=== PATIENT | female | born 1945 | race Caucasian/White ===

== ENCOUNTER 2021-12-04 08:00 | Outpatient (REF) | payer MEDICARE, SELFPAY ==
[2021-12-04 08:20] LABS: MANUAL DIFF FLAG NO
[2021-12-04 08:53] LABS: Hematocrit 35.3 % (37.0-47.0); Hemoglobin 11.5 g/dl (12.0-16.0); Imm Gran Pct Auto 0.1 % (0.0-0.4); Mean Corpuscular HGB Conc 32.6 g/dl (31.0-35.0); Mean Corpuscular Hemoglobin 29.9 pg (27.0-33.0); Mean Corpuscular Volume 91.9 fL (80.0-98.0); Mean Platelet Volume 9.2 fL (9.4-12.3); Platelet Count 326 X10*3/uL (160-400); Red Blood Count 3.84 X10*6/uL (4.20-5.50); Red Cell Distribution Width 12.1 % (11.0-16.0); White Blood Count 7.1 X10*3/uL (4.8-10.8)
[2021-12-04 08:54] LABS: Basophils Percent Auto 0.3 % (0-2); Eosinophils Absolute Auto 0.1 X10*3/uL (0.0-0.4); Eosinophils Percent Auto 1.7 % (0-4); Imm Gran Abs Auto 0.01 X10*3/uL (0.00-0.03); Lymphocytes Absolute Auto 1.1 X10*3/uL (1.2-4.9); Lymphocytes Percent Auto 15.4 % (20-40); Monocytes Absolute Auto 0.5 X10*3/uL (0.1-1.2); Monocytes Percent Auto 7.5 % (2-11); Neutrophils Absolute Auto 5.3 x10*3/uL (2.0-8.3)
[2021-12-04 08:55] LABS: Appearance Urine HAZY; Color Urine YELLOW; Glucose Urine UA NEG (NEG); Leukocyte Esterase Urine 3+ (NEG); Nitrite Urine POS (NEG); Urine Blood NEG (NEG); Urine Ketones NEG (NEG); Urine Protein NEG (NEG-TRACE)
[2021-12-04 09:07] LABS: Bacteria Urine 4+ /LPF; Squamous Epithelial Cell Urine 3+ /LPF
[2021-12-04 09:07] LABS: Estimated Average Glucose 126 mg/dL
[2021-12-04 09:08] LABS: RBC Urine 0 /HPF (0)
[2021-12-04 09:24] LABS: Alanine Aminotransferase 10 U/L (0-31); Albumin Level 3.8 g/dL (3.5-5.0); Alkaline Phosphatase 72 U/L (39-117); Anion Gap 11 (12-20); Aspartate Amino Transferase 15 U/L (5-31); Bilirubin Total 0.9 mg/dL (0.0-1.0); Blood Urea Nitrogen 21 mg/dL (9-16); Calcium 9.3 mg/dL (8.4-10.2); Carbon Dioxide 27 mmol/L (22-29); Chloride 108 mmol/L (96-108); Cholesterol 180 mg/dL; Estimated Glomerular Filt Rate > 60; Glucose Random 93 mg/dL (60-115); HDL Cholesterol 70 mg/dL; LDL Cholesterol Calculated 102 mg/dl; Potassium 4.3 mmol/L (3.3-5.1); Sodium 142 mmol/L (135-145); Total Protein 6.2 g/dL (6.5-8.0); Triglycerides 44 mg/dL
[2021-12-04 09:59] LABS: Free T4 (Free Thyroxine) 0.99 ng/dL (0.71-1.85); Thyroid Stimulating Hormone 1.17 uIU/mL (0.32-4.0); Vitamin D 25-OH Total 55.2 ng/mL (>30)
[2021-12-04 10:57] LABS: Folate 8.8 ng/mL (> or = 4.0); Vitamin B12 331 pg/mL (200-900)
== END 2021-12-04 08:01 | disposition home or self-care (01) ==
LOC: HO.LAB 08:00
PROVIDERS: PCP Internal Medicine; Visit Provider Internal Medicine
DX: K21.9 Gastro-esophageal reflux disease without esophagitis (principal); E78.00 Pure hypercholesterolemia, unspecified
CPT/HCPCS: 36415; 80053; 80061; 81001; 82306; 82607; 82746; 83036; 84439; 84443; 85025

== ENCOUNTER 2022-02-05 13:20 | Outpatient (REF) | payer MEDICARE, SELFPAY ==
--- NOTE | ~2022-02-05 | MM_ITS ---
EXAMINATION: BONE DENSITOMETRY CLINICAL INDICATION: Osteoporosis. COMPARISON: Baseline BD dated 02/02/2020. TECHNIQUE: Using a [employer] DXA System (software version: 13.1) manufactured by [email or web address], dual-energy x-ray absorptiometry was performed of the lumbar spine and left hip. The images are of good technical quality. Summary results are attached. FINDINGS: AP SPINE L1-L4: Current: BMD 0.994 g/cm2, Z-score 0.5, T-score -1.6, osteopenia, 2.8% increase from baseline (<5% change is not significant). Baseline: BMD 0.967 g/cm2. LEFT FEMUR, NECK: Current: BMD 0.729 g/cm2, Z-score -0.1, T-score -2.2, osteopenia. Baseline: BMD 0.752 g/cm2. LEFT FEMUR, TOTAL: Current: BMD 0.750 g/cm2, Z-score -0.1, T-score -2.0, osteopenia, 1.3% decrease from baseline (<5% change is not significant). Baseline: BMD 0.760 g/cm2. IDENTIFIED RISK FACTORS: Menopause. HISTORY OF FRACTURE: Childhood fracture, wrist. MEDICATIONS: Vitamin D. MM/XR DEXA axial skeleton IMPRESSION: 1. DIAGNOSIS: Osteopenia based on the lowest T-score value of -2.2 in the femoral neck applying World Health Organization criteria. 2. 10-YEAR FRACTURE RISK PREDICTION, FRAX: Major osteoporotic fracture (clinical spine, forearm, hip or shoulder) 13.4%. Hip fracture 3.8%. 3. Treatment Recommendations: NOF guidelines recommend consideration for treatment in postmenopausal women and men age 50 and older presenting with the following: -A hip or vertebral (clinical or morphometric) fracture. -T-score less than or equal to -2.5 at the femoral neck or spine after appropriate evaluation to exclude secondary causes. -Low bone mass at the hip or spine and a 10-year fracture probability by FRAX of greater than or equal to 3% for hip fracture or greater than or equal to 20% for major osteoporotic fracture based on the [place] adapted WHO algorithm. 4. Other Recommendations: All treatment decisions require clinical judgment and consideration of individual patient factors, including patient preferences, comorbidities, previous drug use, risk factors not captured in the FRAX model (e.g. frailty, falls, vitamin D deficiency, increased bone turnover, interval significant decline in bone density) and possible under or overestimation of fracture risk by FRAX. Additional medical evaluation for secondary cause of low bone mineral density may be appropriate. FUTURE SCAN RECOMMENDATION: People with diagnosed cases of osteoporosis or at high risk for fracture should have regular bone mineral density tests. For patients eligible for Medicare, routine testing is allowed once every 2 years. The testing frequency can be increased to one year for patients who have rapidly progressing disease, those who are receiving or discontinuing medical therapy to restore bone mass, or have additional risk factors.
--- NOTE | ~2022-02-05 | MM_ITS ---
EXAMINATION: MM SCREENING DIGITAL BREAST TOMOSYNTHESIS, BILATERAL CLINICAL INFORMATION: Screening. Asymptomatic. The lifetime risk of breast cancer based on the Tyrer-Cuzick Model is 3%. COMPARISON: Mammography: 02/02/2020, 01/28/2017, 10/21/2012 TECHNIQUE: Digital breast tomosynthesis is performed in both the craniocaudal and mediolateral oblique views along with computer-aided detection (CAD). Synthesized 2D images are generated from the tomosynthesis. FINDINGS: The breasts are heterogeneously dense, which may obscure small masses (ACR BI-RADS breast composition Category c). There is fine fibronodular parenchymal pattern. Left breast shows no interval mass or architectural abnormality. Neither breast shows abnormal calcifications. The skin contours are smooth. Right MLO synthesized view has asymmetric density upper breast 7 cm from nipple, likely summation artifact. MM/MM tomosynthesis screening BI IMPRESSION: Right: -Asymmetric density upper breast 7 cm from nipple, likely summation artifact. Left: -No mammographic evidence of malignancy. ASSESSMENT: BI-RADS 0: Incomplete - Need Additional Imaging Evaluation RECOMMENDATION: 1. Additional views of the right breast (spot MLO, changed angle MLO). 2. Targeted ultrasound if warranted after review of the additional views. 3. Radiology department staff will contact the patient for additional imaging. This patient's information was entered into a reminder system with a target due date for their next mammogram.
== END 2022-02-05 13:21 | disposition home or self-care (01) ==
LOC: HO.MAMMO 13:20
PROVIDERS: PCP Internal Medicine; Visit Provider Internal Medicine
DX: Z12.31 Encounter for screening mammogram for malignant neoplasm of breast (principal); Z13.820 Encounter for screening for osteoporosis; M81.0 Age-related osteoporosis without current pathological fracture; Z78.0 Asymptomatic menopausal state
CPT/HCPCS: 77063; 77067; 77080

== ENCOUNTER 2022-02-26 12:55 | Outpatient (REF) | payer MEDICARE, SELFPAY ==
--- NOTE | ~2022-02-26 | MM_ITS ---
EXAMINATION: MM DIAGNOSTIC DIGITAL BREAST TOMOSYNTHESIS, RIGHT CLINICAL INFORMATION: Recall from screening for asymmetric density upper breast on MLO view, suspect summation artifact. COMPARISON: Mammography: 02/05/2022, 02/02/2020, 01/28/2017 TECHNIQUE: Digital breast tomosynthesis is performed. 2D images are generated from the tomosynthesis. The following views are obtained: MLO with mole marker, spot MLO with mole marker. FINDINGS: The breasts are heterogeneously dense, which may obscure small masses (ACR BI-RADS breast composition Category c). There is a dermal lesion overlying the area for recall. The underlying breast fibroglandular tissue shows no mass or architectural abnormality or developing density from prior studies. No significant changes from prior exams. Results are discussed with the patient at time of visit. MM/MM tomosynthesis added views R IMPRESSION: -Dermal lesion overlying the area for recall. -Additional views show no significant changes in the targeted area from prior studies. ASSESSMENT: BI-RADS 2: Benign RECOMMENDATION: Routine annual mammography screening. This patient's information was entered into a reminder system with a target due date for their next mammogram.
== END 2022-02-26 12:56 | disposition home or self-care (01) ==
LOC: HO.MAMMO 12:55
PROVIDERS: PCP Internal Medicine; Visit Provider Internal Medicine
DX: R92.2 Inconclusive mammogram (principal)
CPT/HCPCS: 77061; 77065

== ENCOUNTER 2022-12-27 06:32 | Outpatient (REF) | payer MEDICARE, SELFPAY ==
[2022-12-27 06:42] LABS: MANUAL DIFF FLAG NO
[2022-12-27 07:28] LABS: Basophils Absolute Auto 0.1 X10*3/uL (0.0-0.2); Basophils Percent Auto 1.4 % (0-2); Eosinophils Absolute Auto 0.2 X10*3/uL (0.0-0.4); Hematocrit 36.1 % (37.0-47.0); Hemoglobin 11.8 g/dl (12.0-16.0); Imm Gran Abs Auto 0.01 X10*3/uL (0.00-0.03); Imm Gran Pct Auto 0.3 % (0.0-0.4); Immature Retic Fraction 8.8 % (3.0-15.9); Lymphocytes Absolute Auto 1.1 X10*3/uL (1.2-4.9); Lymphocytes Percent Auto 29.8 % (20-40); Mean Corpuscular HGB Conc 32.7 g/dl (31.0-35.0); Mean Corpuscular Hemoglobin 30.1 pg (27.0-33.0); Mean Corpuscular Volume 92.1 fL (80.0-98.0); Monocytes Absolute Auto 0.4 X10*3/uL (0.1-1.2); Monocytes Percent Auto 10.4 % (2-11); Neutrophils Absolute Auto 1.9 x10*3/uL (2.0-8.3); Neutrophils Percent Auto 52.1 % (45-73); Platelet Count 320 X10*3/uL (160-400); Red Blood Count 3.92 X10*6/uL (4.20-5.50); Red Cell Distribution Width 11.9 % (11.0-16.0); Retic HGB Equivalent 31.9 pg (30.0-35.0); Reticulocyte Percent 0.9 % (0.5-1.8); Reticulocytes Absolute 0.035 X10*6/uL (0.026-0.095); White Blood Count 3.7 X10*3/uL (4.8-10.8)
[2022-12-27 07:34] LABS: Estimated Average Glucose 117 mg/dL; Hemoglobin A1c % 5.7 %
[2022-12-27 08:15] LABS: Alanine Aminotransferase 28 U/L (0-31); Albumin Level 3.8 g/dL (3.5-5.0); Alkaline Phosphatase 76 U/L (39-117); Anion Gap 13 (12-20); Aspartate Amino Transferase 22 U/L (5-31); Bilirubin Total 0.6 mg/dL (0.0-1.0); Blood Urea Nitrogen 17 mg/dL (9-16); Calcium 8.9 mg/dL (8.4-10.2); Carbon Dioxide 29 mmol/L (22-29); Chloride 106 mmol/L (96-108); Cholesterol 185 mg/dL; Estimated Glomerular Filt Rate > 60; Glucose Random 100 mg/dL (60-115); HDL Cholesterol 70 mg/dL; Iron 106 mcg/dL (30-160); LDL Cholesterol Calculated 107 mg/dl; Percent Iron Saturation 45 % (15-50); Potassium 4.6 mmol/L (3.3-5.1); Sodium 143 mmol/L (135-145); Total Iron Binding Capacity 238 mcg/dL (228-428); Total Protein 6.3 g/dL (6.5-8.0); Triglycerides 43 mg/dL; Unsaturated Iron Binding 132 ug/dL
[2022-12-27 08:27] LABS: Ferritin 215 ng/mL (10-250); Folate 15.6 ng/mL (> or = 4.0); Free T4 (Free Thyroxine) 1.05 ng/dL (0.71-1.85); Thyroid Stimulating Hormone 0.94 uIU/mL (0.32-4.0); Vitamin B12 567 pg/mL (200-900); Vitamin D 25-OH Total 66.3 ng/mL (>30)
== END 2022-12-27 06:33 | disposition home or self-care (01) ==
LOC: HO.LAB 06:32
PROVIDERS: PCP Internal Medicine; Visit Provider Internal Medicine
DX: D64.9 Anemia, unspecified (principal); R73.02 Impaired glucose tolerance (oral); E78.00 Pure hypercholesterolemia, unspecified; M85.80 Other specified disorders of bone density and structure, unspecified site; E55.9 Vitamin D deficiency, unspecified
CPT/HCPCS: 36415; 80053; 80061; 82306; 82607; 82728; 82746; 83036; 83540; 84439; 84443; 85025; 85045

== ENCOUNTER 2023-02-10 16:49 | Outpatient (AMB) | payer MEDICARE, SELFPAY ==
--- NOTE | 2023-02-10 16:54 | MHC.PC.OV ---
Vital Signs 02/10/23 16:55 Height 5 ft 1.5 in Weight 116 lb BMI 21.6 BP 134/70 Blood Pressure Location Lt brachial Position Sitting Pulse 64 Pulse Source Pulse Oximeter Pulse Oximetry (%) 98 Oxygen Delivery Method Room Air Intake Visit Reasons: blood pressure, IGT Allergies Sulfa (Sulfonamide Antibiotics) Allergy (Unknown, Verified 02/10/23 16:55) Unknown Medication List - Last Reconciled 02/10/23 by Favian Atkinson MD antiarthritic combination no.2 (glucosamine-chondroitin) mg PO ascorbate calcium (vitamin C) 2.5 grams PO DAILY blood pressure monitor (Blood Pressure Kit) As directed cholecalciferol (vitamin D3) 25 mcg PO DAILY [joycelyn and thyme PO] [tincture of Lions filippo ] valacyclovir 500 mg PO Q12H PRN [vitamin b complex PO] Tobacco use date assessed: 12/26/22 Fall risk assessment: No Falls in past year Last assessed Fall Risk: 02/10/23 Dental Screening Dental Screen Date: 02/10/23 Did you have a dental visit in the last 12 months?: Yes Did you have a dental problem in the last 6 months where you did not have access to dental care?: No Was dental information given to patient?: Patient has dentist HPI blood pressure, IGT HPI Details 77-year-old female with GERD impaired glucose tolerance mild anemia osteopenia coming in for follow-up. Noted to have an elevated blood pressure the last time and is here for follow-up. Bone density is up-to-date colonoscopy is up-to-date. Mammogram is due. Patient was last seen in December 2022. BP at home is all good. complains R LE mild swelling ? twisted decline testing [facility] Medical History (Updated 12/26/22 @ 17:48 by Favian Atkinson MD) Contracture of joint of both hands Genital herpes GERD (gastroesophageal reflux disease) Impaired glucose tolerance Impaired glucose tolerance Leukopenia Osteoarthritis Osteoporosis Vitamin D deficiency Surgical History (Updated 12/26/22 @ 17:29 by Favian Atkinson MD) H/O oral surgery Family History (Updated 12/26/22 @ 16:57 by Rani Biggs CMA) Mother Diabetes Father No problems noted. Brother No problems noted. Sister Diabetes Sister No problems noted. Daughter No problems noted. Son No problems noted. Other Substance use disorder Social History (Updated 12/03/21 @ 12:48 by Favian Atkinson MD) Housing: House Alcohol intake: current Alcohol intake frequency: holidays/special occasions only Patient Tobacco Use Status: Never used Tobacco e-Cigarette/Vaping Use: Never Used Second Hand Smoke Exposure: No Substance Use Type: Marijuana service: No Current occupational status: retired Cognitive needs: No Hearing needs: No Vision needs: Yes Questionnaire PHQ-9 Over the last 2 weeks, how often have you been bothered by any of the following problems? 1. Little interest or pleasure in doing things: not at all 2. Feeling down, depressed, or hopeless: not at all 3. Trouble falling or staying asleep, or sleeping too much: not at all 4. Feeling tired or having little energy: not at all 5. Poor appetite or overeating: not at all 6. Feeling bad about yourself - or that you are a failure or have let yourself or your family down: not at all 7. Trouble concentrating on things, such as reading the newspaper or watching television: not at all 8. Moving or speaking so slowly that other people could have noticed. Or the opposite - being so fidgety or restless that you have been moving around a lot more than usual: not at all 9. Thoughts that you would be better off or of hurting yourself in some way: not at all Total score: 0 Depression Screening Interpretation: Negative Source: Developed by Drs. Aubrey Jaramillo, Tita Hale, Joseluis Nunez and colleagues, with an educational charla from [employer]. Thrive Questionnaire Date Thrive assessed: 12/26/22 AUDIT C Alcohol Use Questionnaire (AUDIT-C) 1. How often do you have a drink containing alcohol?: 2-3 times a week 2. How many drinks containing alcohol do you have on a typical day when you are drinking?: 1 or 2 3. How often do you have six or more drinks on one occasion?: Never Total Score: 3 TORIE-7 AMB Questionnaire TORIE-7 Date TORIE - 7 assessed: 12/26/22 Source: Developed by Drs. Aubrey Jaramillo, Tita Hale, Joseluis Nunez and colleagues, with an educational charla from [employer]. Physical exam (Primary Care) Vital Signs: Last Vital Signs Pulse 64 02/10/23 16:55 BP 134/70 02/10/23 16:55 Pulse Ox 98 02/10/23 16:55 Oxygen Delivery Method Room Air 02/10/23 16:55 BMI result Body Mass Index 21.6 Tobacco/Smoking Status: Tobacco use Status Tobacco use date assessed 12/26/22 02/10/23 17:00 Patient Tobacco Use Status Never used Tobacco 02/10/23 17:00 e-Cigarette/Vaping Use Never Used 02/10/23 17:00 PHQ-9: PHQ-9 Score PHQ-9: Total score 0 02/10/23 17:00 Depression Screening Interpretation: Negative Thrive Assessment: Date of Thrive Assessment Date Thrive assessed 12/26/22 02/10/23 17:00 Const General: alert; No acute distress Eyes Conjunctivae: conjunctivae normal Resp Auscultation: clear to auscultation bilaterally Cardio Rate: regular rate Rhythm: regular rhythm GI Inspection: Yes normal to inspection Extrem General: Yes normal to inspection and No edema Assessment and Plan Assessment & Plan (1) Blood pressure elevated without history of HTN: Code(s): R03.0 - Elevated blood-pressure reading, without diagnosis of hypertension Plan: Blood pressure is better (2) Breast cancer screening by mammogram: Code(s): Z12.31 - Encounter for screening mammogram for malignant neoplasm of breast Plan: Reminded about mammogram (3) Impaired glucose tolerance: Code(s): R73.02 - Impaired glucose tolerance (oral) Plan: Decrease the amount of carbohydrate intake, pasta, bread, rice and potatoes are all sugar and that is aside from all the sweet stuff, remember that fruits are good but they are Sweet also. (4) GERD (gastroesophageal reflux disease): Code(s): K21.9 - Gastro-esophageal reflux disease without esophagitis Plan: Avoid the foods that causes that usually spicy foods, tomato products, juices, coffee, soda and foods that your sensitive to. After eating do not lie down, allow 3-4 hours before in lie down. And keep the head of bed above 30 degrees to avoid the acid from going up. (5) Mild anemia: Code(s): D64.9 - Anemia, unspecified Plan: Continuing to monitor. Stable Coding Level of Care Code Est Pt Level 4 (37626) Diagnoses Blood pressure elevated without history of HTN R03.0 Breast cancer screening by mammogram Z12.31 Impaired glucose tolerance R73.02 GERD (gastroesophageal reflux disease) K21.9 Mild anemia D64.9
[2023-02-10 16:55] VITALS: BP 134/70; PULSE 64; O2SAT 98; BMI 21.6
== END 2023-02-10 18:16 | disposition home or self-care (01) ==
PROVIDERS: PCP Internal Medicine; Visit Provider Internal Medicine
DX: R03.0 Elevated blood-pressure reading, without diagnosis of hypertension (principal); Z12.31 Encounter for screening mammogram for malignant neoplasm of breast; R73.02 Impaired glucose tolerance (oral); K21.9 Gastro-esophageal reflux disease without esophagitis; D64.9 Anemia, unspecified
CPT/HCPCS: 99214

== ENCOUNTER 2023-07-04 14:36 | Outpatient (REF) | payer MEDICARE, SELFPAY ==
[2023-07-04 15:29] LABS: Appearance Urine Cloudy; Color Urine Yellow; Glucose Urine UA Negative (Negative); Leukocyte Esterase Urine Large (3+) (Negative); Nitrite Urine Positive (Negative); PH 7.5 (5.0-9.0); UMIC TRIGGER UA YES; Urine Blood Negative (Negative); Urine Ketones Negative (Negative); Urine Protein Negative (Neg-Trace)
[2023-07-04 15:35] LABS: Bacteria Urine 4+ (None Seen); Hyaline Casts Urine 0-2 /LPF (0-2); RBC Urine 0-2 /HPF (0-2); Squamous Epithelial Cell Urine 0-2 /HPF (0-2)
== END 2023-07-04 14:37 | disposition home or self-care (01) ==
LOC: HO.LAB 14:36
PROVIDERS: PCP Internal Medicine; Visit Provider Internal Medicine
DX: R82.90 Unspecified abnormal findings in urine (principal)
CPT/HCPCS: 81001; 87086; 87088; 87186

== ENCOUNTER 2023-07-23 14:03 | Outpatient (AMB) | payer MEDICARE, SELFPAY ==
[2023-07-23 14:08] VITALS: BP 130/78; PULSE 68; O2SAT 99; BMI 22.3
--- NOTE | 2023-07-23 14:08 | MHC.PC.OV ---
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 Allergies Sulfa (Sulfonamide Antibiotics) Allergy (Unknown, Verified 07/23/23 14:22) Unknown Medication List - Last Reconciled 07/23/23 by Favian Atkinson MD antiarthritic combination no.2 (glucosamine-chondroitin) mg PO ascorbate calcium (vitamin C) 2.5 grams PO DAILY blood pressure monitor (Blood Pressure Kit) As directed cholecalciferol (vitamin D3) 25 mcg PO DAILY [jocyelyn and thyme PO] [tincture of Lions filippo ] valacyclovir 500 mg PO Q12H PRN [vitamin b complex PO] Tobacco use date assessed: 07/23/23 Fall risk assessment: No Falls in past year Last assessed Fall Risk: 07/23/23 Dental Screening Dental Screen Date: 07/23/23 Did you have a dental visit in the last 12 months?: Yes Did you have a dental problem in the last 6 months where you did not have access to dental care?: No Was dental information given to patient?: Patient has dentist HPI Pap Smear HPI Details 77-year-old female with a history of impaired glucose tolerance GERD mild anemia coming in for Pap smear. Last seen in February 2023 bone density is up-to-date colonoscopy up-to-date mammogram due.. patient complains of discharge with odor pungent urinalysis qustion [facility] Medical History (Updated 05/05/23 @ 16:39 by Kristen Birch RN) Impaired glucose tolerance Osteoporosis Impaired glucose tolerance Contracture of joint of both hands Osteoarthritis Genital herpes GERD (gastroesophageal reflux disease) Leukopenia Vitamin D deficiency Surgical History (Updated 12/26/22 @ 17:29 by Favian Atkinson MD) H/O oral surgery Family History (Updated 12/26/22 @ 16:57 by Rani Biggs CMA) Mother Diabetes Father No problems noted. Brother No problems noted. Sister Diabetes Sister No problems noted. Daughter No problems noted. Son No problems noted. Other Substance use disorder Social History (Updated 12/03/21 @ 12:48 by Favian Atkinson MD) Housing: House Alcohol intake: current Alcohol intake frequency: holidays/special occasions only Patient Tobacco Use Status: Never used Tobacco e-Cigarette/Vaping Use: Never Used Second Hand Smoke Exposure: No Substance Use Type: Marijuana service: No Current occupational status: retired Cognitive needs: No Hearing needs: No Vision needs: Yes Questionnaire Thrive Questionnaire Date Thrive assessed: 12/26/22 AUDIT C Alcohol Use Questionnaire (AUDIT-C) 1. How often do you have a drink containing alcohol?: 2-3 times a week 2. How many drinks containing alcohol do you have on a typical day when you are drinking?: 1 or 2 3. How often do you have six or more drinks on one occasion?: Never Total Score: 3 TORIE-7 AMB Questionnaire TORIE-7 Date TORIE - 7 assessed: 12/26/22 Source: Developed by Drs. Aubrey Jaramillo, Tita Hale, Joseluis Nunez and colleagues, with an educational charla from [employer]. Physical exam (Primary Care) Vital Signs: Last Vital Signs Pulse 68 07/23/23 14:08 BP 130/78 07/23/23 14:08 Pulse Ox 99 07/23/23 14:08 Oxygen Delivery Method Room Air 07/23/23 14:08 BMI result Body Mass Index 22.3 Tobacco/Smoking Status: Tobacco use Status Tobacco use date assessed 07/23/23 07/23/23 14:09 Patient Tobacco Use Status Never used Tobacco 07/23/23 14:09 e-Cigarette/Vaping Use Never Used 07/23/23 14:09 Thrive Assessment: Date of Thrive Assessment Date Thrive assessed 12/26/22 07/23/23 14:09 Assessment and Plan Assessment & Plan Orders: Orders Comprehensive Met. Panel 5 Months D64.9 - Anemia, unspecified Lipid Panel 5 Months D64.9 - Anemia, unspecified, E78.00 - Pure hypercholesterolemia, unspecified Vitamin B12 and Folate 5 Months D64.9 - Anemia, unspecified Free T4 (Free Thyroxine) 5 Months D64.9 - Anemia, unspecified Ferritin 5 Months R73.02 - Impaired glucose tolerance (oral) Reticulocyte Count 5 Months R73.02 - Impaired glucose tolerance (oral) Magnesium 5 Months R73.02 - Impaired glucose tolerance (oral) ABO RH Type 5 Months R73.02 - Impaired glucose tolerance (oral) Erythrocyte Sedimentation Rate 5 Months R73.02 - Impaired glucose tolerance (oral) Complete Blood Count Auto Diff 5 Months D64.9 - Anemia, unspecified Thyroid Stimulating Hormone 5 Months D64.9 - Anemia, unspecified Vitamin D 25-OH Total 5 Months D64.9 - Anemia, unspecified Hemoglobin A1c 5 Months R73.02 - Impaired glucose tolerance (oral) IRON PROFILE 5 Months R73.02 - Impaired glucose tolerance (oral) Coding Level of Care Code Est Pt Level 4 (93926)
== END 2023-07-23 15:03 | disposition home or self-care (01) ==
PROVIDERS: PCP Internal Medicine; Visit Provider Internal Medicine
DX: R73.02 Impaired glucose tolerance (oral) (principal); D64.9 Anemia, unspecified
CPT/HCPCS: 99214

== ENCOUNTER 2024-05-03 12:22 | Outpatient (AMB) | payer MEDICARE, SELFPAY ==
--- NOTE | 2024-05-03 12:30 | AM.OFFVISMDC ---
Intake Vital Signs 05/03/24 12:31 Height 5 ft 1.5 in Weight 55.338 kg BMI 22.7 BP 124/70 Blood Pressure Location Lt brachial Position Sitting Pulse 67 Pulse Source Pulse Oximeter Pulse Oximetry (%) 97 Oxygen Delivery Method Room Air Intake Visit Reasons: [facility] Grocery Stocker Required: No Accompanied by: Self / Same As Patient Allergies Sulfa (Sulfonamide Antibiotics) Allergy (Unknown, Verified 05/03/24 12:34) Unknown Medication List - Last Reconciled 05/03/24 by Favian Atkinson MD antiarthritic combination no.2 (glucosamine-chondroitin) mg PO ascorbate calcium (vitamin C) 2.5 grams PO DAILY blood pressure monitor (Blood Pressure Kit) As directed cholecalciferol (vitamin D3) 25 mcg PO DAILY [apoorva tincture ] [joycelyn and thyme PO] [tincture of Lions filippo ] [vitamin b complex PO] HPI SWV HPI Details 78-year-old female with a history of impaired glucose tolerance GERD coming in for annual well visit last seen in 07/23/2023. Patient's bone density was last done in 02/20/2022 colonoscopy last done in 2014 mammogram is due. Dermatology [place] [facility] 07 declines repeat 02/2020 osteoporosis osteopenia February 2022 Colonoscopy May 2015 Mammogram January papsmear CP on lying down Q 6 month. declined mammo and bone density. 2 months R 3rd toe pain, deny trauma but had swelling and pain [facility] Medical History (Updated 05/03/24 @ 12:58 by Favian Atkinson MD) Impaired glucose tolerance Osteoporosis Impaired glucose tolerance Contracture of joint of both hands Osteoarthritis Genital herpes GERD (gastroesophageal reflux disease) Leukopenia Vitamin D deficiency Surgical History H/O oral surgery Family History Mother Diabetes Father No problems noted. Brother No problems noted. Sister Diabetes Sister No problems noted. Daughter No problems noted. Son No problems noted. Other Substance use disorder Social History (Updated 05/03/24 @ 12:47 by Favian Atkinson MD) Housing: House Alcohol intake: current Alcohol intake frequency: holidays/special occasions only Comment: Q night 1 glass Patient Tobacco Use Status: Never used Tobacco Years Smoked: MJ e-Cigarette/Vaping Use: Never Used Second Hand Smoke Exposure: No Substance Use Type: Marijuana service: No Current occupational status: retired Cognitive needs: No Hearing needs: No Vision needs: Yes Questionnaire Medicare Wellness Checkup [age] What gender do you identify with?: female During the past 4 weeks, how much have you been bothered by emotional problems such as feeling anxious, depressed, irritable, sad or downhearted, and blue?: not at all During the past 4 weeks, has your physical & emotional health limited your social activities with family, friends, neighbors, or groups?: not at all During the past 4 weeks, how much bodily pain have you generally had?: very mild pain During the past 4 weeks, was someone available to help you if you needed & wanted help?: yes, as much as I wanted During the past 4 weeks, what was the hardest physical activity you could do for at least 2 minutes?: moderate Can you get to places out of walking distance without help? (For eg., can you travel alone on buses, taxis or drive your car?): Yes Can you go shopping for groceries or clothes without someone's help?: Yes Can you prepare your own meals?: Yes Can you do your housework without help?: Yes Because of any health problems, do you need the help of another person with your personal care needs such as eating, bathing, dressing or getting around the house?: No Can you handle your own money without help?: Yes During the past 4 weeks, how would you rate your health in general?: excellent During the past 4 weeks how have things been going for you?: pretty well Are you having difficulties driving your car?: no Do you always fasten your seat belt when you are in a car?: yes, usually During past 4 weeks, have you been bothered by the following: never: Falling or dizzy when standing up, Sexual problems?, Trouble eating well?, Teeth or denture problems? and Problems using the telephone? and seldom: Tiredness or fatigue? Have you fallen 2 or more times in the past year?: No Are you afraid of falling?: No Are you a smoker?: no During the past 4 weeks, how many drinks of wine, beer, or other alcoholic beverages did you have?: 2-5 drinks per week Do you exercise for about 20 minutes 3 or more times a week?: yes, most of the time Have you been given information to help with the following?: yes: Hazards in your house that might hurt you? and no: Keeping track of your medications? How often do you have trouble taking medicines the way you have been told to take them?: I do not have to take medicine How confident are you that you can control & manage most of your health problems?: very confident What is your race?: White PHQ-9 Over the last 2 weeks, how often have you been bothered by any of the following problems? 1. Little interest or pleasure in doing things: not at all 2. Feeling down, depressed, or hopeless: not at all 3. Trouble falling or staying asleep, or sleeping too much: not at all 4. Feeling tired or having little energy: not at all 5. Poor appetite or overeating: not at all 6. Feeling bad about yourself - or that you are a failure or have let yourself or your family down: not at all 7. Trouble concentrating on things, such as reading the newspaper or watching television: not at all 8. Moving or speaking so slowly that other people could have noticed. Or the opposite - being so fidgety or restless that you have been moving around a lot more than usual: not at all 9. Thoughts that you would be better off or of hurting yourself in some way: not at all Total score: 0 Source: Developed by Drs. Aubrey Jaramillo, Tita Hale, Joseluis Nunez and colleagues, with an educational charla from [employer]. Fall Risk Assessment Fall Risk Assessment Fall risk assessment: No Falls in past year Thrive Questionnaire Date Thrive assessed: 05/03/24 I am a: Patient What is your living situation today?: I have a steady place to live Within the past 12 months, did the food you bought not last and you didn't have the money to get more?: Never true Within the past 12 months, did you worry whether your food would run out before you got money to buy more?: Never true Do you have trouble paying for medicines?: No Do you have trouble getting transportation to medical appointments?: No Do you have trouble paying your heating and electricity bill?: No Do you have trouble taking care of your child, family member or friend?: No Do you have trouble with day-to-day activities such as bathing, preparing meals, shopping, managing finances, etc.?: No Are you currently unemployed and looking for a job?: No Are you interested in more education?: No Please select the resources that you would like help with: None Currently or been in a relationship where the following occur: No concerns reported THRIVE Score: 0 AUDIT C Alcohol Use Questionnaire (AUDIT-C) 1. How often do you have a drink containing alcohol?: 2-3 times a week 2. How many drinks containing alcohol do you have on a typical day when you are drinking?: 1 or 2 3. How often do you have six or more drinks on one occasion?: Never Total Score: 3 TORIE-7 AMB Questionnaire TORIE-7 Date TORIE - 7 assessed: 05/03/24 Feeling nervous, anxious, or on edge: 0 = Not at all Not being able to stop or control worryin = Not at all Worrying too much about different things: 0 = Not at all Trouble relaxin = Not at all Being so restless that it is hard to sit still: 0 = Not at all Becoming easily annoyed or irritable: 0 = Not at all Feeling afraid as if something awful might happen: 0 = Not at all Total TORIE-7 score (0-4 normal; 5-9 mild; 10-14 moderate; 15-21 severe): 0 Source: Developed by Drs. Aubrey Jaramillo, Tita Hale, Joseluis Nunez and colleagues, with an educational charla from [employer]. Review of Systems Const Denies poor appetite and Denies weakness Eyes Denies no additional complaints ENT Reports Normal hearing present, Denies dizziness, Denies nasal congestion, Denies tinnitus and Denies sore throat Card Denies chest pain, Denies syncope, Denies rapid heart rate and Denies dyspnea Resp Denies cough and Denies dyspnea GI Denies change in stool character, Reports constipation, Denies diarrhea, Denies nausea and Denies vomiting Denies urinary frequency, Denies difficulty voiding and Denies dysuria Neuro Reports Normal hearing present, Denies confusion, Denies dizziness, Denies syncope and Denies weakness Psych Denies confusion Physical Exam Vital Signs: Last Vital Signs Pulse 67 05/03/24 12:31 BP 124/70 05/03/24 12:31 Pulse Ox 97 05/03/24 12:31 Oxygen Delivery Method Room Air 05/03/24 12:31 BMI result Body Mass Index 22.7 Const General: alert and awake; No confusion Orientation/consciousness: No confusion HEENT Head: Yes normocephalic Ears: external ears normal and TM's normal bilaterally Face and sinus: Yes normal facial exam Mouth: moist mucous membranes Throat: Yes tonsils normal Eyes Conjunctivae: conjunctivae normal Pupils: Equal, round and reactive pupils present and Pupil accommodation reflex normal Direct Ophthalmoscopy: normal light reflex Neck Neck: No lymphadenopathy Thyroid: Thyroid normal Chest Chest palpation & inspection: normal inspection of the chest Resp Effort & Inspection: normal respiratory effort and no audible wheezes Auscultation: clear to auscultation bilaterally, no crackles, no wheezes and lung sounds not diminished Cardio Rate: regular rate Rhythm: regular rhythm Peripheral pulses: radial pulses present and dorsalis pedis present GI Palpation (GI): no masses Auscultation: normal bowel sounds and normoactive bowel sounds Rectal Exam - Female: deferred Skin General skin exam: no rashes or lesions noted Rashes: no rashes Neuro General: deep tendon reflexes 2+ bilaterally and No confusion Cranial nerves: Yes Equal, round and reactive pupils present, Yes Midline tongue present, Yes Normal hearing present and Yes Ability to bilaterally elevate shoulders present Cognition (Neuro): normal cognition Gait exam (Neuro): Normal gait present Motor exam (neuro): 5/5 motor strength present throughout Deep tendon reflexes (DTR's): Right brachioradialis reflex intensity grade: 2+, Left brachioradialis reflex intensity grade: 2+, Right patellar reflex intensity grade: 2+ and Left patellar reflex intensity grade: 2+ Extrem Other: R thrid toe dip swelling General: No edema Assessment & Plan Assessment & Plan (1) Medicare annual wellness visit, subsequent: Code(s): Z00.00 - Encounter for general adult medical examination without abnormal findings Plan: Patient is advised to eat healthy, keep well hydrated, keep active and have adequate sleep. (2) GERD (gastroesophageal reflux disease): Code(s): K21.9 - Gastro-esophageal reflux disease without esophagitis Qualifiers: Esophagitis presence: without esophagitis Qualified Code(s): K21.9 - Gastro-esophageal reflux disease without esophagitis Plan: Avoid the foods that causes that usually spicy foods, tomato products, juices, coffee, soda and foods that your sensitive to. After eating do not lie down, allow 3-4 hours before in lie down. And keep the head of bed above 30 degrees to avoid the acid from going up. (3) Osteopenia: Comment: February 2022 Code(s): M85.80 - Other specified disorders of bone density and structure, unspecified site Plan: Discussed about repeat bone density (4) Breast cancer screening by mammogram: Code(s): Z12.31 - Encounter for screening mammogram for malignant neoplasm of breast Plan: Discussion about mammogram (5) Toe pain, right: Comment: R third toe dip pain 04/2024 Code(s): M79.674 - Pain in right toe(s) Plan: xr requested Orders: Orders XR foot RT 2V Today M79.674 - Pain in right toe(s) Quality Reporting (2019) Fall Risk Screening ([facility] 139) Fall risk assessment: No Falls in past year Depression/Bipolar (159/160/161/177) PHQ-9: Total score: 0 Coding Level of Care Code Medicare Subsequent (G0439) Diagnoses Medicare annual wellness visit, subsequent Z00.00 Gastroesophageal reflux disease without esophagitis K21.9 Esophagitis presence: without esophagitis Osteopenia M85.80 Breast cancer screening by mammogram Z12.31 Toe pain, right M79.674
[2024-05-03 12:31] VITALS: BP 124/70; PULSE 67; O2SAT 97; BMI 22.7
== END 2024-05-03 14:48 | disposition home or self-care (01) ==
PROVIDERS: PCP Internal Medicine; Visit Provider Internal Medicine
DX: Z00.00 Encounter for general adult medical examination without abnormal findings (principal); K21.9 Gastro-esophageal reflux disease without esophagitis; M85.80 Other specified disorders of bone density and structure, unspecified site; Z12.31 Encounter for screening mammogram for malignant neoplasm of breast; M79.674 Pain in right toe(s)

== ENCOUNTER → 2024-05-03 12:22 | Outpatient (BNVA) | payer MEDICARE, SELFPAY | PROVIDERS: PCP Internal Medicine; Visit Provider Internal Medicine ==

== ENCOUNTER 2024-05-06 07:09 | Outpatient (REF) | payer MEDICARE, SELFPAY ==
[2024-05-06 07:33] LABS: MANUAL DIFF FLAG NO
[2024-05-06 08:53] LABS: Basophils Percent Auto 0.7 % (0-2); Eosinophils Absolute Auto 0.1 X10*3/uL (0.0-0.4); Estimated Average Glucose 120 mg/dL; Hematocrit 38.8 % (37.0-47.0); Hemoglobin 12.9 g/dl (12.0-16.0); Hemoglobin A1C 129.1144 umol/L; Hemoglobin A1c % 5.8 % (<6.0); Imm Gran Abs Auto 0.01 X10*3/uL (0.00-0.03); Imm Gran Pct Auto 0.2 % (0.0-0.4); Immature Retic Fraction 8.2 % (3.0-15.9); Lymphocytes Absolute Auto 1.1 X10*3/uL (1.2-4.9); Lymphocytes Percent Auto 25.6 % (20-40); Mean Corpuscular HGB Conc 33.2 g/dl (31.0-35.0); Mean Corpuscular Hemoglobin 30.5 pg (27.0-33.0); Mean Corpuscular Volume 91.7 fL (80.0-98.0); Mean Platelet Volume 9.2 fL (9.4-12.3); Monocytes Absolute Auto 0.4 X10*3/uL (0.1-1.2); Monocytes Percent Auto 8.2 % (2-11); Neutrophils Absolute Auto 2.7 x10*3/uL (2.0-8.3); Neutrophils Percent Auto 62.3 % (45-73); Platelet Count 274 X10*3/uL (160-400); Red Blood Count 4.23 X10*6/uL (4.20-5.50); Red Cell Distribution Width 12.1 % (11.0-16.0); Retic HGB Equivalent 34.2 pg (30.0-35.0); Reticulocyte Percent 1.1 % (0.5-1.8); Reticulocytes Absolute 0.048 X10*6/uL (0.026-0.095); Total Hemoglobin (HGBA1C) 3277.2969 umol/L; White Blood Count 4.4 X10*3/uL (4.8-10.8)
[2024-05-06 09:42] LABS: Alanine Aminotransferase 20 U/L (0-31); Albumin Level 4.1 g/dL (3.5-5.0); Alkaline Phosphatase 70 U/L (39-117); Anion Gap 11 (12-20); Aspartate Amino Transferase 29 U/L (5-31); Bilirubin Total 0.5 mg/dL (0.0-1.0); Blood Urea Nitrogen 12 mg/dL (9-16); Calcium 9.6 mg/dL (8.4-10.2); Carbon Dioxide 29 mmol/L (22-29); Chloride 107 mmol/L (96-108); Cholesterol 185 mg/dL (<200); Estimated Glomerular Filt Rate > 60; Glucose Random 109 mg/dL (60-115); HDL Cholesterol 81 mg/dL (>40); Iron 79 mcg/dL (30-160); LDL Cholesterol Calculated 96 mg/dL (<100); Percent Iron Saturation 32 % (15-50); Potassium 4.3 mmol/L (3.3-5.1); Sodium 143 mmol/L (135-145); Total Iron Binding Capacity 247 mcg/dL (228-428); Total Protein 7.1 g/dL (6.5-8.0); Triglycerides 43 mg/dL (<150); Unsaturated Iron Binding 168 ug/dL
[2024-05-06 09:46] LABS: Erythrocyte Sedimentation Rate 13 MM/HR (0-20)
[2024-05-06 10:00] LABS: Ferritin 145 ng/mL (10-250); Free T4 (Free Thyroxine) 0.96 ng/dL (0.71-1.85); Thyroid Stimulating Hormone 1.45 uIU/mL (0.32-4.0); Vitamin D 25-OH Total 72.9 ng/mL (>30)
[2024-05-06 10:26] LABS: Folate 15.8 ng/mL (> or = 4.0); Vitamin B12 550 pg/mL (200-900)
== END 2024-05-06 07:10 | disposition home or self-care (01) ==
LOC: HO.LAB 07:09
PROVIDERS: PCP Internal Medicine; Visit Provider Internal Medicine
DX: D64.9 Anemia, unspecified (principal); E78.00 Pure hypercholesterolemia, unspecified; R73.02 Impaired glucose tolerance (oral)
CPT/HCPCS: 36415; 80053; 80061; 82306; 82607; 82728; 82746; 83036; 83540; 83735; 84439; 84443; 85025; 85045; 85652; 86900; 86901

== ENCOUNTER 2024-06-25 07:53 | Outpatient (REF) | payer MEDICARE, SELFPAY ==
--- NOTE | ~2024-06-25 | XR_ITS ---
EXAMINATION: XR FOOT, RIGHT CLINICAL INFORMATION: Right toe pain. COMPARISON: Fall one week ago. TECHNIQUE: AP, lateral, and oblique views of the right foot. FINDINGS: Prominent distal third toe soft tissue swelling. Cortical irregularity through the middle phalangeal head which could be degenerative or represent a nondisplaced fracture. No discrete fracture line. No dislocation. Joint space narrowing with marginal osteophytes throughout the interphalangeal joints as well as at the 1st metatarsophalangeal joint and hallux sesamoids. No osseous erosion. Plantar calcaneal spur. XR/XR foot RT 2V IMPRESSION: 1. Prominent distal third toe soft tissue swelling. Cortical irregularity through the middle phalangeal head which could be degenerative or represent a nondisplaced fracture. No discrete fracture line. 2. Degenerative arthritis throughout the interphalangeal joints as well as at the 1st metatarsophalangeal joint and hallux sesamoids. 3. Plantar calcaneal spur. Electronically signed by: Marvin Cotter MD 06/25/2024 12:11 PM [facility]
--- NOTE | ~2024-06-25 | XR_ITS ---
EXAMINATION: XR HAND, RIGHT CLINICAL INFORMATION: Right hand pain. COMPARISON: None available. TECHNIQUE: PA, lateral, and oblique views of the right hand. FINDINGS: Probable minimally displaced, oblique fracture through the base of the 5th metacarpal with cortical step-off measuring up to 0.2 cm radially. Correlate for focal tenderness. No definite extension to the articular surface. No additional fracture. No dislocation. Severe joint space narrowing with bony remodeling and marginal osteophytes at the 1st carpometacarpal joint. More mild joint space narrowing with tiny marginal osteophytes scattered throughout the metacarpophalangeal and interphalangeal joints. No osseous erosion. No abnormal soft tissue calcification. XR/XR hand RT 2V IMPRESSION: 1. Probable minimally displaced, oblique fracture through the base of the 5th metacarpal. Correlate for focal tenderness. 2. Severe degenerative arthritis at the 1st carpometacarpal joint. More mild degenerative arthritis scattered throughout the metacarpophalangeal and interphalangeal joints. Electronically signed by: Marvin Cotter MD 06/25/2024 12:03 PM [facility]
== END 2024-06-25 07:54 | disposition home or self-care (01) ==
LOC: HO.XRAY 07:53
PROVIDERS: PCP Internal Medicine; Visit Provider Internal Medicine
DX: M79.674 Pain in right toe(s) (principal); M79.641 Pain in right hand
CPT/HCPCS: 73120; 73620

== ENCOUNTER 2024-08-23 09:19 | Outpatient (AMB) | payer MEDICARE, SELFPAY ==
[2024-08-23 09:23] VITALS: BP 120/60; PULSE 76; TEMP 36.4; O2SAT 99; BMI 21.5
--- NOTE | 2024-08-23 09:23 | MHC.PC.OV ---
Vital Signs 08/23/24 09:23 Height 5 ft 1.5 in Weight 115 lb 8 oz BMI 21.5 BP 120/60 Blood Pressure Location Lt brachial Position Sitting Pulse 76 Pulse Source Pulse Oximeter Temp 97.5 F Temp Source Temporal Artery Scan Pulse Oximetry (%) 99 Oxygen Delivery Method Room Air Intake Visit Reasons: BP Dynamics Ax Developer Required: No Accompanied by: Self / Same As Patient Allergies Sulfa (Sulfonamide Antibiotics) Allergy (Unknown, Verified 08/23/24 09:31) Unknown Medication List - Last Reconciled 08/23/24 by KUSUM Blankenship antiarthritic combination no.2 (glucosamine-chondroitin) mg PO ascorbate calcium (vitamin C) 2.5 grams PO DAILY blood pressure monitor (Blood Pressure Kit) As directed cholecalciferol (vitamin D3) 25 mcg PO DAILY [apoorva tincture ] [joycelyn and thyme PO] [tincture of Lions filippo ] [vitamin b complex PO] Tobacco use date assessed: 08/23/24 Fall risk assessment: 1 Fall in past year Last assessed Fall Risk: 08/23/24 Dental Screening Dental Screen Date: 08/23/24 Did you have a dental visit in the last 12 months?: Yes Did you have a dental problem in the last 6 months where you did not have access to dental care?: No Was dental information given to patient?: Patient has dentist HPI BP HPI Details Patient is a 78-year-old female with significant past medical history of osteopenia, mild anemia, GERD Patient is a patient of Dr. Atkinson, she was last seen on 05/03/2024 annual visit The patient is presenting today due to concerns for elevated blood pressure The patient reports she has been going through a separation with her recently and this has caused her a lot of stress. She reported that she took her blood pressure due to concerns because high blood pressure runs in her family. Reports her readings were in the 180s/60s. She reports that she has been meditating, taking walks and she is scheduled to see a therapist. Overall she is feeling much better, she denies chest, denies shortness of breath, denies heart palpitation and headaches. The patient has a history of GERD but denies heartburn denies any change in her stool habits or stomach pain. Patient blood pressure today in office is 120/60. The patient was informed that this was most likely due to her stress and was encouraged that she is taking all the right steps to decrease her stress. The patient reports that in the past she has had chest pains and heart palpitation but it does not happen often. She reports that the last time this happened was in April, and it lasted about 10-15 minutes. Reports that this is a sharp pain that usually takes her breath away. She denies radiation of the pain, nausea or vomiting, diaphoresis her feeling faint. She reports that her chest pain usually happens at night or in the morning before she gets up. She reports that this does not happen often, maybe 3-4 times in couple of years. She is not sure if this correlates with stressful situations. She endorse ups and downs in her life and has gone through a lot of changes so it could have been but she is not sure. --we will do a baseline EKG today. Patient is encouraged to contact the office if she start having these symptoms again. [facility] Medical History (Updated 08/23/24 @ 10:45 by KUSUM Blankenship) Impaired glucose tolerance Osteoporosis Impaired glucose tolerance Contracture of joint of both hands Osteoarthritis Genital herpes GERD (gastroesophageal reflux disease) Leukopenia Vitamin D deficiency Surgical History H/O oral surgery Family History Mother Diabetes Father No problems noted. Brother No problems noted. Sister Diabetes Sister No problems noted. Daughter No problems noted. Son No problems noted. Other Substance use disorder Social History Housing: House Alcohol intake: current Alcohol intake frequency: holidays/special occasions only Comment: Q night 1 glass Patient Tobacco Use Status: Never used Tobacco Years Smoked: MJ e-Cigarette/Vaping Use: Never Used Second Hand Smoke Exposure: No Substance Use Type: Marijuana service: No Current occupational status: retired Cognitive needs: No Hearing needs: No Vision needs: Yes Questionnaire PHQ-9 Over the last 2 weeks, how often have you been bothered by any of the following problems? 1. Little interest or pleasure in doing things: not at all 2. Feeling down, depressed, or hopeless: not at all 3. Trouble falling or staying asleep, or sleeping too much: not at all 4. Feeling tired or having little energy: not at all 5. Poor appetite or overeating: not at all 6. Feeling bad about yourself - or that you are a failure or have let yourself or your family down: not at all 7. Trouble concentrating on things, such as reading the newspaper or watching television: not at all 8. Moving or speaking so slowly that other people could have noticed. Or the opposite - being so fidgety or restless that you have been moving around a lot more than usual: not at all 9. Thoughts that you would be better off or of hurting yourself in some way: not at all Total score: 0 Depression Screening Interpretation: Negative Depression Screening Done: Yes 30440 - PHQ-9 Billing: Yes Source: Developed by Drs. Aubrey Jaramillo, Tita Hale, Joseluis Nunez and colleagues, with an educational charla from [employer]. Thrive Questionnaire Date Thrive assessed: 08/23/24 I am a: Patient What is your living situation today?: I have a steady place to live Within the past 12 months, did the food you bought not last and you didn't have the money to get more?: Never true Within the past 12 months, did you worry whether your food would run out before you got money to buy more?: Never true Do you have trouble paying for medicines?: No Do you have trouble getting transportation to medical appointments?: No Do you have trouble paying your heating and electricity bill?: No Do you have trouble taking care of your child, family member or friend?: No Do you have trouble with day-to-day activities such as bathing, preparing meals, shopping, managing finances, etc.?: No Are you currently unemployed and looking for a job?: No Are you interested in more education?: No Please select the resources that you would like help with: None Currently or been in a relationship where the following occur: No concerns reported THRIVE Score: 0 AUDIT C Alcohol Use Questionnaire (AUDIT-C) 1. How often do you have a drink containing alcohol?: 2-3 times a week 2. How many drinks containing alcohol do you have on a typical day when you are drinking?: 1 or 2 3. How often do you have six or more drinks on one occasion?: Never Total Score: 3 Score Reviewed/Action Taken: Yes TORIE-7 AMB Questionnaire TORIE-7 Date TORIE - 7 assessed: 08/23/24 Feeling nervous, anxious, or on edge: 0 = Not at all Not being able to stop or control worryin = Not at all Worrying too much about different things: 0 = Not at all Trouble relaxin = Not at all Being so restless that it is hard to sit still: 0 = Not at all Becoming easily annoyed or irritable: 0 = Not at all Feeling afraid as if something awful might happen: 0 = Not at all Total TORIE-7 score (0-4 normal; 5-9 mild; 10-14 moderate; 15-21 severe): 0 Source: Developed by Drs. Aubrey Jaramillo, Tita Hale, Joseluis Nunez and colleagues, with an educational charla from [employer]. TORIE-7 Assessment Billing TORIE-7 Assessment Tool: TORIE-7 Assessment 72196 Review of Systems Const Details: Denies chills, Denies fatigue, Denies fever(s), Denies headache(s) and Denies weakness HEENT Denies change in vision, Denies dizziness, Denies headache(s), Denies hearing loss, Denies nasal congestion, Denies sinus pain, Denies sinus pressure and Denies sore throat Card Denies chest pain, Denies lightheadedness, Denies dyspnea and Denies other (palpitations) Resp Denies cough, Denies dyspnea and Denies wheezing GI Denies abdominal pain, Denies melena, Denies hematochezia, Denies change in bowel habits, Denies dyspepsia and Denies nausea Denies hematuria and Denies dysuria Musc Denies abnormal gait, Denies myalgias, Denies arthralgias, Denies numbness and Denies tingling Skin/Breast Denies rash, Denies unusual bruising and Denies wounds Neuro Denies abnormal gait, Denies dizziness, Denies headache(s), Denies memory loss, Denies numbness, Denies Sensory deficit (Neuro), Denies tingling and Denies weakness Psych Denies anxiety, Denies depression and Denies memory loss Endo Denies cold intolerance, Denies fatigue, Denies heat intolerance, Denies polydipsia and Denies polyuria Cliff/Lymph Denies easy bleeding and Denies easy bruising Aller/Immun Denies wheezing Physical exam (Primary Care) Vital Signs: Last Vital Signs Temp 97.5 F 08/23/24 09:23 Pulse 76 08/23/24 09:23 BP 120/60 08/23/24 09:23 Pulse Ox 99 08/23/24 09:23 Oxygen Delivery Method Room Air 08/23/24 09:23 BMI result Body Mass Index 21.5 Tobacco/Smoking Status: Tobacco use Status Tobacco use date assessed 08/23/24 08/23/24 09:29 Patient Tobacco Use Status Never used Tobacco 08/23/24 09:29 e-Cigarette/Vaping Use Never Used 08/23/24 09:29 PHQ-9: PHQ-9 Score PHQ-9: Total score 0 08/23/24 10:03 Depression Screening Interpretation: Negative Thrive Assessment: Date of Thrive Assessment Date Thrive assessed 08/23/24 08/23/24 09:29 Currently or been in a relationship where the following occur: No concerns reported Const Other: General: no acute distress, well developed, alert and awake Nutritional Appearance: well nourished Orientation/consciousness: patient oriented x3 HENMT Head: Yes normocephalic and Yes atraumatic Eyes Pupils: Equal, round and reactive pupils present and Pupil accommodation reflex normal EOM: EOMs intact bilaterally Neck Neck: Yes normal visual inspection, Yes no lymphadenopathy Thyroid: Thyroid normal Chest Chest palpation & inspection: normal inspection of the chest Resp Effort & Inspection: normal respiratory effort Auscultation: clear to auscultation bilaterally Cardio Rate: regular rate Rhythm: regular rhythm Heart sounds: S1 normal heart sound present, S2 normal heart sound present, no gallops, no murmurs and no rubs Bruits: no abdominal aortic bruits and no carotid bruits GI Palpation (GI): Her abdomen is soft and nontender to palpation Auscultation: normal bowel sounds General: Yes no CVA tenderness Back/Spine/Pelvis Back: no CVA tenderness Skin General: warm and dry. Normal skin color. Normal skin turgor Lesions: no lesions Nails: normal Neuro General: patient oriented x3, gait normal Cranial nerves: Yes Equal, round and reactive pupils present Cognition (Neuro): normal cognition Gait exam (Neuro): Normal gait present Extrem General: Yes normal to inspection, No edema and No calf tenderness Psych Appearance: grossly normal Affect: normal affect Attitude: cooperative Thought process: Normal thought process present Office Procedures EKG [id number], Complete Coding Level of Care Code Est Pt Level 3 (73734) Diagnoses Chest pain, unspecified type R07.9 Chest pain type: unspecified Blood pressure elevated without history of HTN R03.0 Mild anemia D64.9 Gastroesophageal reflux disease without esophagitis K21.9 Esophagitis presence: without esophagitis Impaired glucose tolerance R73.02 Situational stress F43.9 CPT Codes EKG - CPT: 26750-[id number], Complete ([id number]) Additional Codes TORIE-7 Assessment Billing - TORIE-7 Assessment Tool: TORIE-7 Assessment 27822 ([id number]) PHQ-9 - 51917 - PHQ-9 Billing: Yes ([id number]) Time Spent (min) 28 Assessment & Plan Assessment & Plan (1) Chest pain: Code(s): R07.9 - Chest pain, unspecified Category: Medical Qualifiers: Chest pain type: unspecified Qualified Code(s): R07.9 - Chest pain, unspecified Plan: The patient reports chest pain and palpitation in the past. Reports that the last time this occurred was in April 2024. Reports that the pain was sharp and took her breath away and lasted for 10-15 minutes. She has not been worked up for this before. Baseline EKG ordered-showing sinus rhythm-the patient was encouraged the contact the office if her chest pain reoccur or go to the emergency room if the pain is not relenting (2) Blood pressure elevated without history of HTN: Code(s): R03.0 - Elevated blood-pressure reading, without diagnosis of hypertension Category: Medical Plan: Patient reported elevated blood pressure at home 180s/160s-after going through a self-described crisis The patient blood pressure in office today is 120/60. She has been taking the steps to decrease her stress. Reports that she has been meditating, taking walks and she is scheduled to see a therapist. Discussed with the patient that this was most likely due to the stress but she should avoid foods with a high salt content. Continue monitoring blood pressure regularly (3) Mild anemia: Code(s): D64.9 - Anemia, unspecified Category: Medical Plan: This was stable on her last CBC-continue to monitor (4) GERD (gastroesophageal reflux disease): Code(s): K21.9 - Gastro-esophageal reflux disease without esophagitis Category: Medical Qualifiers: Esophagitis presence: without esophagitis Qualified Code(s): K21.9 - Gastro-esophageal reflux disease without esophagitis Plan: Reinforced dietary restrictions and elevating head of bed to decrease acid going up in the esophagus (5) Impaired glucose tolerance: Code(s): R73.02 - Impaired glucose tolerance (oral) Category: Medical Plan: Encourage patient to continue decreasing sugar/carbohydrate intake (6) Situational stress: Code(s): F43.9 - Reaction to severe stress, unspecified Category: Medical Plan: Reports going through a separation with her and this has been very stressful for her Continue meditating and taking walks Follow-up with therapist as scheduled Plan The patient has a follow up appointment in May, for annual/Medicare eval Patient to keep that appointment but call to follow up sooner for any concerns Orders: Orders AMB EKG-In Office Today R07.9 - Chest pain, unspecified
== END 2024-08-23 10:02 | disposition home or self-care (01) ==
PROVIDERS: PCP Internal Medicine
DX: R07.9 Chest pain, unspecified (principal); R03.0 Elevated blood-pressure reading, without diagnosis of hypertension; D64.9 Anemia, unspecified; K21.9 Gastro-esophageal reflux disease without esophagitis; R73.02 Impaired glucose tolerance (oral); F43.9 Reaction to severe stress, unspecified

== ENCOUNTER → 2024-08-23 09:19 | Outpatient (BNVA) | payer MEDICARE, SELFPAY | PROVIDERS: PCP Internal Medicine | DX: R07.9 Chest pain, unspecified (principal); R03.0 Elevated blood-pressure reading, without diagnosis of hypertension; D64.9 Anemia, unspecified; K21.9 Gastro-esophageal reflux disease without esophagitis; R73.02 Impaired glucose tolerance (oral); F43.9 Reaction to severe stress, unspecified | CPT/HCPCS: 93005; 96127; 99212 ==

== ENCOUNTER → 2024-12-07 07:42 | Outpatient (REF) | payer MEDICARE, SELFPAY ==
--- NOTE | 2024-12-07 07:45 | CA_ITS ---
Acquisition Time: 2024-12-07 07:57:01 Total Exercise Time: 00:07:05 Test Indications: CP,SOB Medications: SEE H&P Protocol: MARIE Max HR: 144 BPM 100% of Pred: 143 BPM Max BP: 184/50 mmHG Max Work Load: 8.6 METS Exercise stress test with exercise 7 mins 5 secs of Marie Protocol, achieving 100% MPHR, with mild SOB, no chest pain, with isolated PVCs, with normotensive response to exercise. Without EKG changes meeting criteria for ischemia. Test reviewed with Dr. Gonzalez. Referred By: Marcos Key Electronically Signed By: Dar Felton
== END ==
LOC: HO.CARD 07:42
PROVIDERS: PCP Internal Medicine
DX: R07.9 Chest pain, unspecified (principal); R00.2 Palpitations
CPT/HCPCS: 93017; 93242

== ENCOUNTER → 2024-12-07 07:45 | Outpatient (BNV) | payer MEDICARE, SELFPAY | PROVIDERS: PCP Internal Medicine | DX: R06.02 Shortness of breath (principal); I49.3 Ventricular premature depolarization | CPT/HCPCS: 93016; 93018 ==

== ENCOUNTER 2025-01-04 11:29 | Outpatient (AMB) | payer MEDICARE, SELFPAY ==
--- NOTE | 2025-01-04 11:35 | A.OFFPC_ITS ---
Vital Signs 01/04/25 11:37 Height 5 ft 1.5 in Weight 116 lb 6.4 oz BMI 21.6 BP 114/76 Blood Pressure Location Lt brachial Position Sitting Respiration 18 Pulse 67 Pulse Source Pulse Oximeter Temp 98.7 F Temp Source Oral Pulse Oximetry (%) 98 Oxygen Delivery Method Room Air Intake Visit Reasons: right ear pain It Application Development Manager Required: No Accompanied by: Self / Same As Patient Allergies Sulfa (Sulfonamide Antibiotics) Allergy (Unknown, Verified 01/10/25 13:11) Unknown Medication List - Last Reconciled 01/16/25 by KUSUM Blankenship antiarthritic combination no.2 (glucosamine-chondroitin) mg PO ascorbate calcium (vitamin C) 2.5 grams PO DAILY blood pressure monitor (Blood Pressure Kit) As directed cholecalciferol (vitamin D3) 25 mcg PO DAILY [apoorva tincture ] [joycelyn and thyme PO] [tincture of Lions filippo ] [vitamin b complex PO] Tobacco use date assessed: 01/04/25 Fall risk assessment: 1 Fall in past year Last assessed Fall Risk: 01/04/25 Dental Screening Dental Screen Date: 01/04/25 Did you have a dental visit in the last 12 months?: Yes Did you have a dental problem in the last 6 months where you did not have access to dental care?: No Was dental information given to patient?: Patient has dentist HPI right ear pain HPI Details The patient is a 79-year-old female presenting with a blocked ear and exacerbation of tinnitus. She reports the obstruction began recently, following an episode a month ago when she experienced blockage after a cold. This was resolved initially but has returned with significant ringing and obstruction in one ear. The patient describes having tinnitus for a long duration, emphasizing its severity predominantly at night. She has frequent wax build-up, routinely managed by a previous physician, and hearing evaluations did not suggest any impairment. Her attempts to use cerumenolytic drops resulted in complete blockage, possibly due to the solidified wax structure. She experiences temporary relief when applying pressure to a specific point on her ear. The patient plans to fly soon, which in the past has exacerbated ear issues, despite employing strategies like decongestants, particularly during emotional stress. She denies having other upper respiratory symptoms currently. Rigth ear pain started couple days ago. Recently she had a blockage when she came from out of town. Reports that she has tinnitus for a while ago. Reports that it is blocked and feels weird to her. She is going out of town soon and wants to make sure [facility] Medical History Impaired glucose tolerance Osteoporosis Impaired glucose tolerance Contracture of joint of both hands Osteoarthritis Genital herpes GERD (gastroesophageal reflux disease) Leukopenia Vitamin D deficiency Surgical History H/O oral surgery Family History Mother Diabetes Father No problems noted. Brother No problems noted. Sister Diabetes Sister No problems noted. Daughter No problems noted. Son No problems noted. Other Substance use disorder Social History Housing: House Alcohol intake: current Alcohol intake frequency: holidays/special occasions only Comment: Q night 1 glass Patient Tobacco Use Status: Never used Tobacco Years Smoked: MJ e-Cigarette/Vaping Use: Never Used Second Hand Smoke Exposure: No Substance Use Type: Marijuana service: No Current occupational status: retired Cognitive needs: No Hearing needs: No Vision needs: Yes (Glasses) Questionnaire PHQ-9 Over the last 2 weeks, how often have you been bothered by any of the following problems? 1. Little interest or pleasure in doing things: not at all 2. Feeling down, depressed, or hopeless: not at all 3. Trouble falling or staying asleep, or sleeping too much: several days 4. Feeling tired or having little energy: not at all 5. Poor appetite or overeating: not at all 6. Feeling bad about yourself - or that you are a failure or have let yourself or your family down: not at all 7. Trouble concentrating on things, such as reading the newspaper or watching television: not at all 8. Moving or speaking so slowly that other people could have noticed. Or the opposite - being so fidgety or restless that you have been moving around a lot more than usual: not at all 9. Thoughts that you would be better off or of hurting yourself in some way: not at all Total score: 1 Depression Screening Interpretation: Negative Depression Screening Done: Yes Source: Developed by Drs. Aubrey Jaramillo, Tita Hale, Joseluis Nunez and colleagues, with an educational charla from [email or web address]. Thrive Questionnaire Date Thrive assessed: 01/04/25 I am a: Patient What is your living situation today?: I have a place to live, but I am worried about losing it in the future Within the past 12 months, did the food you bought not last and you didn't have the money to get more?: Never true Within the past 12 months, did you worry whether your food would run out before you got money to buy more?: Never true Do you have trouble paying for medicines?: No Do you have trouble getting transportation to medical appointments?: No Do you have trouble paying your heating and electricity bill?: I choose not to answer this question Do you have trouble taking care of your child, family member or friend?: No Do you have trouble with day-to-day activities such as bathing, preparing meals, shopping, managing finances, etc.?: No Are you currently unemployed and looking for a job?: I choose not to answer this question Are you interested in more education?: Yes Please select the resources that you would like help with: None Currently or been in a relationship where the following occur: Controlled Emotionally THRIVE Score: 2 AUDIT C Alcohol Use Questionnaire (AUDIT-C) 1. How often do you have a drink containing alcohol?: 2-3 times a week 2. How many drinks containing alcohol do you have on a typical day when you are drinking?: 1 or 2 3. How often do you have six or more drinks on one occasion?: Never Total Score: 3 Score Reviewed/Action Taken: No TORIE-7 AMB Questionnaire TORIE-7 Date TORIE - 7 assessed: 01/04/25 Feeling nervous, anxious, or on edge: 1 = Several days Not being able to stop or control worryin = Several days Worrying too much about different things: 1 = Several days Trouble relaxin = Several days Being so restless that it is hard to sit still: 2 = More than half the days Becoming easily annoyed or irritable: 1 = Several days Feeling afraid as if something awful might happen: 0 = Not at all Total TORIE-7 score (0-4 normal; 5-9 mild; 10-14 moderate; 15-21 severe): 7 Source: Developed by Drs. Aubrey Jaramillo, Tita Hale, Joseluis Nunez and colleagues, with an educational charla from [email or web address]. Review of Systems Const Denies headache(s) Eyes Denies loss of vision ENT Denies vertigo, Denies dizziness, Reports otalgia (Right ear), Denies headache(s), Reports tinnitus (Both ear) and Denies sore throat Card Denies chest pain, Denies leg edema and Denies lightheadedness Resp Denies cough, Denies hemoptysis and Denies wheezing Neuro Denies Abnormal speech present, Denies vertigo, Denies dizziness, Denies headache(s) and Denies loss of vision Aller/Immun Denies wheezing Physical exam (Primary Care) Vital Signs: Last Vital Signs Temp 98.7 F 01/04/25 11:37 Pulse 67 01/04/25 11:37 Resp 18 01/04/25 11:37 BP 114/76 01/04/25 11:37 Pulse Ox 98 01/04/25 11:37 Oxygen Delivery Method Room Air 01/04/25 11:37 BMI result Body Mass Index 21.6 Tobacco/Smoking Status: Tobacco use Status Tobacco use date assessed 01/04/25 01/04/25 11:44 Patient Tobacco Use Status Never used Tobacco 01/04/25 11:44 e-Cigarette/Vaping Use Never Used 01/04/25 11:44 PHQ-9: PHQ-9 Score PHQ-9: Total score 1 01/04/25 12:13 Depression Screening Interpretation: Negative Thrive Assessment: Date of Thrive Assessment Date Thrive assessed 01/04/25 01/04/25 11:44 Currently or been in a relationship where the following occur: Controlled Emotionally Const General: healthy appearing, no acute distress, alert and awake Nutritional Appearance: well nourished Orientation/consciousness: oriented to person, oriented to place and oriented to time HENMT Ears: Abnormal EAC present cerumen impaction bilateral and unable to visualize TM bilaterally General nose exam: Normal nasal mucous membranes and turbinates present Eyes Conjunctivae: conjunctivae normal Sclerae: sclerae normal Pupils: Equal, round and reactive pupils present Neck Neck: Yes no lymphadenopathy and Yes no JVD Thyroid: Thyroid normal Carotids: no bruits Resp Effort & Inspection: normal respiratory effort and not tachypneic Auscultation: no crackles, no rales, no rhonchi and no wheezes Cardio Rate: regular rate Rhythm: regular rhythm Heart sounds: no murmurs and normal S1 and S2 Neuro General: oriented to person, oriented to place and oriented to time Cranial nerves: Yes Equal, round and reactive pupils present Speech: No Abnormal speech present Gait exam (Neuro): Normal gait present Motor exam (neuro): no tremor noted Extrem Right upper extremity: full ROM Left upper extremity: full ROM Right lower extremity: full ROM; no edema Left lower extremity: full ROM; no edema Coding Level of Care Code Est Pt Level 3 (53791) Diagnoses Impacted cerumen of both ears H61.23 Tinnitus of both ears H93.13 Otalgia of right ear H92.01 Time Spent (min) 32 Assessment & Plan Assessment & Plan (1) Impacted cerumen of both ears: Code(s): H61.23 - Impacted cerumen, bilateral Category: Medical (2) Tinnitus of both ears: Code(s): H93.13 - Tinnitus, bilateral Category: Medical (3) Otalgia of right ear: Code(s): H92.01 - Otalgia, right ear Category: Medical Plan Start Debrox ear drops to soften cerumen Return in a week for ear cleaning NSAIDs or Tylenol OTC for otalgia as needed
[2025-01-04 11:37] VITALS: BP 114/76; PULSE 67; RESP 18; TEMP 37.1; O2SAT 98; BMI 21.6
== END 2025-01-04 12:34 | disposition home or self-care (01) ==
LOC: HO.HMCH 11:32
PROVIDERS: PCP Internal Medicine
DX: H61.23 Impacted cerumen, bilateral (principal); H93.13 Tinnitus, bilateral; H92.01 Otalgia, right ear

== ENCOUNTER → 2025-01-04 11:29 | Outpatient (BNVA) | payer MEDICARE, SELFPAY | PROVIDERS: PCP Internal Medicine | DX: H93.13 Tinnitus, bilateral (principal); H92.01 Otalgia, right ear | CPT/HCPCS: 96127; 99212 ==

== ENCOUNTER 2025-01-10 13:02 | Outpatient (AMB) | payer MEDICARE, SELFPAY ==
--- NOTE | 2025-01-10 13:06 | A.OFFPC_ITS ---
Vital Signs 01/10/25 13:07 Height 5 ft 1.5 in Weight 117 lb 8 oz BMI 21.8 BP 110/64 Blood Pressure Location Lt brachial Position Sitting Pulse 78 Pulse Source Pulse Oximeter Temp 97.5 F Temp Source Temporal Artery Scan Pulse Oximetry (%) 95 Oxygen Delivery Method Room Air Intake Visit Reasons: right ear flush Intake Note: Patient is here to follow up on Right ear flush. Crystal Finisher Required: No Neurology Technician: Not Required per policy Accompanied by: Self / Same As Patient Allergies Sulfa (Sulfonamide Antibiotics) Allergy (Unknown, Verified 01/10/25 13:11) Unknown Tobacco use date assessed: 01/10/25 Fall risk assessment: No Falls in past year Last assessed Fall Risk: 01/10/25 Dental Screening Dental Screen Date: 01/04/25 HPI right ear flush HPI Details 79-year-old female coming to the office for ear cleaning. [facility] Medical History Impaired glucose tolerance Osteoporosis Impaired glucose tolerance Contracture of joint of both hands Osteoarthritis Genital herpes GERD (gastroesophageal reflux disease) Leukopenia Vitamin D deficiency Surgical History H/O oral surgery Family History Mother Diabetes Father No problems noted. Brother No problems noted. Sister Diabetes Sister No problems noted. Daughter No problems noted. Son No problems noted. Other Substance use disorder Social History Housing: House Alcohol intake: current Alcohol intake frequency: holidays/special occasions only Comment: Q night 1 glass Patient Tobacco Use Status: Never used Tobacco Years Smoked: MJ e-Cigarette/Vaping Use: Never Used Second Hand Smoke Exposure: No Substance Use Type: Marijuana service: No Current occupational status: retired Cognitive needs: No Hearing needs: No Vision needs: Yes (Glasses) Questionnaire Thrive Questionnaire Date Thrive assessed: 01/04/25 I am a: Patient What is your living situation today?: I have a place to live, but I am worried about losing it in the future Within the past 12 months, did the food you bought not last and you didn't have the money to get more?: Never true Within the past 12 months, did you worry whether your food would run out before you got money to buy more?: Never true Do you have trouble paying for medicines?: No Do you have trouble getting transportation to medical appointments?: No Do you have trouble paying your heating and electricity bill?: I choose not to answer this question Do you have trouble taking care of your child, family member or friend?: No Do you have trouble with day-to-day activities such as bathing, preparing meals, shopping, managing finances, etc.?: No Are you currently unemployed and looking for a job?: I choose not to answer this question Are you interested in more education?: Yes Please select the resources that you would like help with: None Currently or been in a relationship where the following occur: Controlled Emotionally THRIVE Score: 2 TOREI-7 AMB Questionnaire TORIE-7 Date TORIE - 7 assessed: 01/04/25 Source: Developed by Drs. Aubrey Jaramillo, Tita Hale, Joseluis Nunez and colleagues, with an educational charla from [employer]. Review of Systems Eyes Details: Ear clogged feeling and decreased hearing Physical exam (Primary Care) Vital Signs: Last Vital Signs Temp 97.5 F 01/10/25 13:07 Oxygen Delivery Method Room Air 01/10/25 13:07 BMI result Body Mass Index 21.8 Tobacco/Smoking Status: Tobacco use Status Tobacco use date assessed 01/04/25 01/04/25 11:44 Patient Tobacco Use Status Never used Tobacco 01/04/25 11:44 e-Cigarette/Vaping Use Never Used 01/04/25 11:44 Thrive Assessment: Date of Thrive Assessment Date Thrive assessed 01/04/25 01/04/25 11:44 Currently or been in a relationship where the following occur: Controlled Emotionally HENMT Ears: Abnormal EAC present cerumen impaction on the right and excessive cerumen on the left Office Procedures Cerumen Removal From which ear canal was the cerumen removed: bilateral Removal: cerumen loop/spoon Notes: patient tolerated procedure well, no complications and ear canal clear [id number] Wax Removal by Spoon/Curette Coding Level of Care Code Procedure Only Diagnoses Impacted cerumen of both ears H61.23 CPT Codes Office Procedure - CPT: 60383-Xtk Wax Removal by Spoon/Curette ([id number]) Assessment & Plan Assessment & Plan (1) Impacted cerumen of both ears: Code(s): H61.23 - Impacted cerumen, bilateral Category: Medical Plan: Cerumen was successfully removed from bilateral ears using lighted curette. Patient tolerated the procedure well and left the room without complication. B ilateral TMs were visualized as intact with well aerated middle ear spaces without perforation or retraction. Follow up as needed for this concern. Plan This note was constructed using voice recognition software. While every effort has been made to ensure accuracy and adult day care worker, still areas may have been included sometimes these areas may affect the content or meeting of the given symptoms. Total time spent caring for the patient today was 20 minutes. This includes time spent before the visit reviewing the chart, time spent during the visit, and time spent after the visit and documentation.
[2025-01-10 13:07] VITALS: BP 110/64; PULSE 78; TEMP 36.4; O2SAT 95; BMI 21.8
== END 2025-01-10 13:31 | disposition home or self-care (01) ==
LOC: HO.HMCH 13:03
PROVIDERS: PCP Internal Medicine
DX: H61.23 Impacted cerumen, bilateral (principal)

== ENCOUNTER → 2025-01-10 13:02 | Outpatient (BNVA) | payer MEDICARE, SELFPAY | PROVIDERS: PCP Internal Medicine | DX: H61.23 Impacted cerumen, bilateral (principal) | CPT/HCPCS: 69210; 99212 ==

== ENCOUNTER 2025-05-05 13:42 | Outpatient (AMB) | payer MEDICARE, SELFPAY ==
--- NOTE | 2025-05-05 13:51 | AM.OFFVISMDC ---
Intake Vital Signs 05/05/25 13:52 Height 5 ft 1.5 in Weight 116 lb BMI 21.6 BP 124/60 Blood Pressure Location Lt brachial Position Sitting Pulse 68 Pulse Source Pulse Oximeter Temp 97.1 F Temp Source Temporal Artery Scan Pulse Oximetry (%) 97 Oxygen Delivery Method Room Air Intake Visit Reasons: [facility] G0439 Allergies Sulfa (Sulfonamide Antibiotics) Allergy (Unknown, Verified 05/05/25 13:55) Unknown Medication List - Last Reconciled 05/05/25 by Favian Atkinson MD antiarthritic combination no.2 (glucosamine-chondroitin) mg PO ascorbate calcium (vitamin C) 2.5 grams PO DAILY blood pressure monitor (Blood Pressure Kit) As directed cholecalciferol (vitamin D3) 25 mcg PO DAILY [apoorva tincture ] [joycelyn and thyme PO] [tincture of Lions filippo ] [vitamin b complex PO] HPI [facility] G0439 HPI Details [facility] dermatology [facility] Medical History Impaired glucose tolerance Osteoporosis Impaired glucose tolerance Contracture of joint of both hands Osteoarthritis Genital herpes GERD (gastroesophageal reflux disease) Leukopenia Vitamin D deficiency Surgical History H/O oral surgery Family History Mother Diabetes Father No problems noted. Brother No problems noted. Sister Diabetes Sister No problems noted. Daughter No problems noted. Son No problems noted. Other Substance use disorder Social History (Updated 05/05/25 @ 14:12 by Favian Atkinson MD) Housing: House Alcohol intake: current Alcohol intake frequency: holidays/special occasions only Comment: 2-3 a week 1-2 glass Patient Tobacco Use Status: Never used Tobacco Years Smoked: MJ e-Cigarette/Vaping Use: Never Used Second Hand Smoke Exposure: No Substance Use Type: Marijuana service: No Current occupational status: retired Cognitive needs: No Hearing needs: No Vision needs: Yes (Glasses) Questionnaire Medicare Wellness Checkup [age] What gender do you identify with?: female During the past 4 weeks, how much have you been bothered by emotional problems such as feeling anxious, depressed, irritable, sad or downhearted, and blue?: not at all During the past 4 weeks, has your physical & emotional health limited your social activities with family, friends, neighbors, or groups?: not at all During the past 4 weeks, how much bodily pain have you generally had?: no pain During the past 4 weeks, was someone available to help you if you needed & wanted help?: yes, as much as I wanted During the past 4 weeks, what was the hardest physical activity you could do for at least 2 minutes?: heavy Can you get to places out of walking distance without help? (For eg., can you travel alone on buses, taxis or drive your car?): Yes Can you go shopping for groceries or clothes without someone's help?: Yes Can you prepare your own meals?: Yes Can you do your housework without help?: Yes Because of any health problems, do you need the help of another person with your personal care needs such as eating, bathing, dressing or getting around the house?: No Can you handle your own money without help?: Yes During the past 4 weeks, how would you rate your health in general?: excellent During the past 4 weeks how have things been going for you?: very well; could hardly better Are you having difficulties driving your car?: no Do you always fasten your seat belt when you are in a car?: yes, usually During past 4 weeks, have you been bothered by the following: never: Falling or dizzy when standing up, Sexual problems?, Trouble eating well?, Teeth or denture problems?, Problems using the telephone? and Tiredness or fatigue? Have you fallen 2 or more times in the past year?: No Are you afraid of falling?: No Are you a smoker?: no During the past 4 weeks, how many drinks of wine, beer, or other alcoholic beverages did you have?: 6-9 drinks per week Do you exercise for about 20 minutes 3 or more times a week?: yes, most of the time Have you been given information to help with the following?: no: Hazards in your house that might hurt you? and no: Keeping track of your medications? How often do you have trouble taking medicines the way you have been told to take them?: I do not have to take medicine How confident are you that you can control & manage most of your health problems?: very confident What is your race?: White PHQ-9 Over the last 2 weeks, how often have you been bothered by any of the following problems? 1. Little interest or pleasure in doing things: not at all 2. Feeling down, depressed, or hopeless: not at all 3. Trouble falling or staying asleep, or sleeping too much: not at all 4. Feeling tired or having little energy: not at all 5. Poor appetite or overeating: not at all 6. Feeling bad about yourself - or that you are a failure or have let yourself or your family down: not at all 7. Trouble concentrating on things, such as reading the newspaper or watching television: not at all 8. Moving or speaking so slowly that other people could have noticed. Or the opposite - being so fidgety or restless that you have been moving around a lot more than usual: not at all 9. Thoughts that you would be better off or of hurting yourself in some way: not at all Total score: 0 Depression Screening Interpretation: Negative Depression Screening Done: Yes 14400 - PHQ-9 Billing: Yes Source: Developed by Drs. Aubrey Jaramillo, Tita Hale, Joseluis Nunez and colleagues, with an educational charla from [employer]. Review of Systems Const Denies poor appetite and Denies weakness Eyes Denies no additional complaints ENT Reports Normal hearing present, Denies dizziness, Denies nasal congestion, Denies tinnitus and Denies sore throat Card Denies chest pain, Denies syncope, Denies rapid heart rate and Denies dyspnea Resp Denies cough and Denies dyspnea GI Denies change in stool character, Reports constipation, Denies diarrhea, Denies nausea and Denies vomiting Denies urinary frequency, Denies difficulty voiding and Denies dysuria Neuro Reports Normal hearing present, Denies confusion, Denies dizziness, Denies syncope and Denies weakness Psych Denies confusion Physical Exam Vital Signs: Last Vital Signs Temp 97.1 F 05/05/25 13:52 Pulse 68 05/05/25 13:52 BP 124/60 05/05/25 13:52 Pulse Ox 97 05/05/25 13:52 Oxygen Delivery Method Room Air 05/05/25 13:52 BMI result Body Mass Index 21.6 Const General: No confusion Orientation/consciousness: No confusion HEENT Head: Yes normocephalic Ears: external ears normal and TM's normal bilaterally Face and sinus: Yes normal facial exam Mouth: moist mucous membranes Throat: Yes tonsils normal Eyes Conjunctivae: conjunctivae normal Pupils: Equal, round and reactive pupils present and Pupil accommodation reflex normal Direct Ophthalmoscopy: normal light reflex Neck Neck: No lymphadenopathy Thyroid: Thyroid normal Chest Chest palpation & inspection: normal inspection of the chest Resp Effort & Inspection: normal respiratory effort and no audible wheezes Auscultation: clear to auscultation bilaterally, no crackles, no wheezes and lung sounds not diminished Cardio Rate: regular rate Rhythm: regular rhythm Peripheral pulses: radial pulses present and dorsalis pedis present GI Palpation (GI): no masses Auscultation: normal bowel sounds and normoactive bowel sounds Rectal Exam - Female: deferred Skin General skin exam: no rashes or lesions noted Rashes: no rashes Neuro General: No confusion Cranial nerves: Yes Equal, round and reactive pupils present and Yes Normal hearing present Cognition (Neuro): normal cognition Gait exam (Neuro): Normal gait present Motor exam (neuro): 5/5 motor strength present throughout Deep tendon reflexes (DTR's): Right brachioradialis reflex intensity grade: 2+, Left brachioradialis reflex intensity grade: 2+, Right patellar reflex intensity grade: 2+ and Left patellar reflex intensity grade: 2+ Extrem General: No edema Assessment & Plan Assessment & Plan (1) Medicare annual wellness visit, subsequent: Code(s): Z00.00 - Encounter for general adult medical examination without abnormal findings Plan: Patient is advised to eat healthy, keep well hydrated, keep active and have adequate sleep. (2) GERD (gastroesophageal reflux disease): Code(s): K21.9 - Gastro-esophageal reflux disease without esophagitis Qualifiers: Esophagitis presence: without esophagitis Qualified Code(s): K21.9 - Gastro-esophageal reflux disease without esophagitis Plan: Avoid the foods that causes that usually spicy foods, tomato products, juices, coffee, soda and foods that your sensitive to. After eating do not lie down, allow 3-4 hours before in lie down. And keep the head of bed above 30 degrees to avoid the acid from going up. (3) Impaired glucose tolerance: Code(s): R73.02 - Impaired glucose tolerance (oral) Plan: Decrease the amount of carbohydrate intake, pasta, bread, rice and potatoes are all sugar and that is aside from all the sweet stuff, remember that fruits are good but they are Sweet also. (4) Osteopenia: Comment: February 2022 Code(s): M85.80 - Other specified disorders of bone density and structure, unspecified site Plan: Discussion about follow-up bone density (5) Heart palpitations: Code(s): R00.2 - Palpitations Plan: Holter done negative Plan History of Present Illness The patient is a 79-year-old female presenting for an annual wellness visit. She has a history of Gastroesophageal Reflux Disease (GERD) and Systemic Lupus Erythematosus, both of which are currently stable. She experienced palpitations earlier this year, and a Holter monitor in December showed normal sinus rhythm with no pauses. In June, she had x-rays of her foot due to soft tissue swelling, which revealed degenerative arthritis and a possible fracture of the middle phalangeal head. Her last blood work in May showed normal blood count and renal function, but elevated blood glucose with a hemoglobin A1c of 5.8%. She has a history of ear wax accumulation, which was addressed in her last visit for ear cleaning. She also reported dental issues, having undergone some gum work recently. Health Maintenance - Bone density test recommended every couple of years, last done in 2021 - Mammogram recommended every couple of years, last done in 2022 - Colonoscopy last done in 2014, patient not interested in repeating - Encouraged to maintain a healthy diet and exercise regularly - Discussed risks of cannabis use and its association with bladder cancer Social History - Alcohol: Consumes 2-3 drinks per week, socially - Tobacco: Denies use - Recreational Drugs: Occasionally uses cannabis, prefers smoking over edibles - Exercise: Engages in hiking, aware of fall risks due to age Review of Systems - Cardiovascular: Reports palpitations, denies chest pain or syncope - Respiratory: Denies dyspnea, cough, or wheezing - Gastrointestinal: Denies heartburn, reports regular bowel movements - Neurological: Denies dizziness, headaches, or balance issues - Musculoskeletal: Reports soft tissue swelling in the foot - Dermatological: Denies skin changes - Endocrine: Reports elevated blood glucose - Hematological: Denies anemia - Genitourinary: Denies dysuria or hematuria - Ophthalmological: Denies vision changes, last eye exam two years ago Physical Exam General: Cooperative, healthy appearing, comfortable, no acute distress and well developed Orientation: Patient oriented x3 Limitations: No limitations Head: Normal to inspection Ears: Hearing grossly normal bilaterally, but some ear wax present, advised to use Debrox drops weekly Nose: Normal external nose present Face and sinus: Normal facial exam Eyes: Appearance normal, both eyes and all related structures, minimal cataracts noted Neck: Normal visual inspection and Yes full ROM Respiratory: Normal respiratory effort and able to speak in complete sentences. Clear to auscultation bilaterally Cardiovascular: Regular rate and rhythm. Normal S1 and S2 GI: Normal to inspection. Soft to palpation and nontender Skin: No rashes or lesions noted Neuro: Patient oriented x3 Extremities: Normal to inspection, no pain or swelling noted Results - Labs: Normal blood count, elevated blood glucose with hemoglobin A1c of 5.8%, normal renal function, normal electrolytes, normal vitamin B12, vitamin D, folic acid, and thyroid levels - Imaging: X-rays of the foot showed soft tissue swelling, possible fracture of the middle phalangeal head, and degenerative arthritis - Holter Monitor: Normal sinus rhythm with no pauses Plan Patient was informed and verbally consented to the use of an ambient scribe for clinic note documentation during this visit. 1. Gastroesophageal Reflux Disease (Gerd) The patient is advised to continue with her current management plan for GERD, which includes dietary modifications and lifestyle changes to minimize symptoms. 2. Systemic Lupus Erythematosus The patient's lupus is currently stable, and no changes to her management plan are necessary at this time. 3. Palpitations The Holter monitor showed normal sinus rhythm with no pauses, and the patient is advised to monitor for any recurrence of palpitations, especially if accompanied by chest pain or syncope. 4. Degenerative Arthritis The patient is advised to manage her arthritis symptoms with [id number] pain relief as needed and to monitor for any worsening of symptoms. 5. Soft Tissue Swelling Of The Foot The patient is advised to monitor the swelling and to seek further evaluation if symptoms persist or worsen. 6. Elevated Blood Glucose The patient is encouraged to maintain a healthy diet and exercise regularly to manage her blood glucose levels, with follow-up blood work to be considered if symptoms arise. 7. Vitamin D Deficiency The patient is advised to continue vitamin D supplementation as part of her management plan. 8. Ear Wax Accumulation The patient is advised to use Debrox drops weekly to manage ear wax accumulation and to seek further evaluation if blockage persists. 9. Dental Issues The patient is scheduled to see her dentist for further evaluation and management of her dental issues. Discussion Notes During the visit, we discussed the patient's current management plans for GERD and lupus, both of which are stable. We reviewed the results of the Holter monitor, which showed normal sinus rhythm, and advised the patient to monitor for any recurrence of palpitations. We also discussed the importance of maintaining a healthy diet and regular exercise to manage her elevated blood glucose levels. The patient was informed about the risks associated with cannabis use, particularly its potential link to bladder cancer. We recommended routine screenings, including a bone density test and mammogram, and addressed her dental concerns with a referral to her dentist. Patient Instructions - Continue current GERD management plan with dietary modifications. - Monitor for any recurrence of palpitations, especially if accompanied by chest pain or syncope. - Maintain a healthy diet and exercise regularly to manage blood glucose levels. - Use Debrox drops weekly to manage ear wax accumulation. - Schedule and attend routine screenings, including bone density test and mammogram. - Follow up with dentist for evaluation and management of dental issues. Orders: Orders XR DEXA axial skeleton Today M81.0 - Age-related osteoporosis without current pathological fracture, M85.80 - Other specified disorders of bone density and structure, unspecified site MM tomosynthesis screening BI Today Z12.31 - Encounter for screening mammogram for malignant neoplasm of breast Quality Reporting (2020) Depression/Bipolar (159/160/161/177) PHQ-9: Total score: 0 Coding Level of Care Code Medicare Subsequent (G0439) Diagnoses Medicare annual wellness visit, subsequent Z00.00 Gastroesophageal reflux disease without esophagitis K21.9 Esophagitis presence: without esophagitis Impaired glucose tolerance R73.02 Osteopenia M85.80 Heart palpitations R00.2 Additional Codes PHQ-9 - 53300 - PHQ-9 Billing: Yes ([id number])
[2025-05-05 13:52] VITALS: BP 124/60; PULSE 68; TEMP 36.2; O2SAT 97; BMI 21.6
== END 2025-05-05 15:40 | disposition home or self-care (01) ==
LOC: HO.HMCH 13:43
PROVIDERS: PCP Internal Medicine; Visit Provider Internal Medicine
DX: Z00.00 Encounter for general adult medical examination without abnormal findings (principal); K21.9 Gastro-esophageal reflux disease without esophagitis; R73.02 Impaired glucose tolerance (oral); M85.80 Other specified disorders of bone density and structure, unspecified site; R00.2 Palpitations

== ENCOUNTER → 2025-05-05 13:42 | Outpatient (BNVA) | payer MEDICARE, SELFPAY | PROVIDERS: PCP Internal Medicine; Visit Provider Internal Medicine | DX: Z00.00 Encounter for general adult medical examination without abnormal findings (principal); K21.9 Gastro-esophageal reflux disease without esophagitis; R73.02 Impaired glucose tolerance (oral); R00.2 Palpitations; M32.9 Systemic lupus erythematosus, unspecified; E55.9 Vitamin D deficiency, unspecified; M81.0 Age-related osteoporosis without current pathological fracture | CPT/HCPCS: 96127 ==

== ENCOUNTER 2025-06-08 14:54 | Outpatient (REF) | payer MEDICARE, SELFPAY ==
--- NOTE | ~2025-06-08 | XR_ITS ---
EXAMINATION: XR SHOULDER, RIGHT CLINICAL INFORMATION: M25.511 - Pain in right shoulder COMPARISON: None available. TECHNIQUE: AP external rotation, Grashey, scapular Y, and axillary views of the right shoulder. FINDINGS: There is mild elevation of distal clavicle at the AC joint. There is no degenerative change involving the AC joint. Minimal marginal osteophyte formation is present along the humeral head and glenoid. On the Grashey view, there is mild prominence of the greater tuberosity. XR/XR shoulder RT min 2V IMPRESSION: Type III AC joint separation. Mild prominence the greater tuberosity on the Grashey view is probably projectional. Correlate for signs/symptoms of an avulsion. Electronically signed by: Con Rubin MD 06/08/2025 04:22 PM [facility]
--- NOTE | ~2025-06-08 | XR_ITS ---
EXAMINATION: XR CERVICAL SPINE CLINICAL INFORMATION: M54.2 - Cervicalgia COMPARISON: None available. TECHNIQUE: 3 views of the cervical spine were obtained. FINDINGS: There is no prevertebral soft tissue swelling. C3-4 demonstrate moderate disc space narrowing with endplate sclerosis and osteophytes. C4-5 demonstrates mild to moderate disc space narrowing and endplate osteophytes. C5-6 demonstrates moderate disc space narrowing with endplate osteophytes. C6-7 demonstrates moderate disc space narrowing and endplate osteophytes. XR/XR cervical spine 3V IMPRESSION: Moderate degenerative disc disease C3-4 through C6-7 Electronically signed by: Con Rubin MD 06/08/2025 04:24 PM [facility]
== END 2025-06-08 14:55 | disposition home or self-care (01) ==
LOC: HO.XRAY 14:54
PROVIDERS: PCP Internal Medicine; Visit Provider Student in an Organized Health Care Education/Training Program
DX: M25.511 Pain in right shoulder (principal); M54.2 Cervicalgia
CPT/HCPCS: 72040; 73030; 96127; 99212

== ENCOUNTER 2025-06-08 14:54 | Outpatient (AMB) | payer MEDICARE, SELFPAY ==
[2025-06-08 15:05] VITALS: BP 108/60; PULSE 77; TEMP 36.4; O2SAT 97; BMI 21.4
--- NOTE | 2025-06-08 15:05 | MHC.PC.OV ---
Vital Signs 06/08/25 15:05 Height 5 ft 1.5 in Weight 115 lb 4 oz BMI 21.4 BP 108/60 Blood Pressure Location Lt brachial Position Sitting Pulse 77 Pulse Source Pulse Oximeter Temp 97.5 F Temp Source Temporal Artery Scan Pulse Oximetry (%) 97 Oxygen Delivery Method Room Air Intake Visit Reasons: neck and upper body pain Allergies Sulfa (Sulfonamide Antibiotics) Allergy (Unknown, Verified 06/08/25 15:08) Unknown Tobacco use date assessed: 06/08/25 Fall risk assessment: No Falls in past year Last assessed Fall Risk: 06/08/25 Dental Screening Dental Screen Date: 06/08/25 Did you have a dental visit in the last 12 months?: Yes Did you have a dental problem in the last 6 months where you did not have access to dental care?: No Was dental information given to patient?: Patient has dentist HPI HPI Comments History of Present Illness Details The patient is a 79-year-old female presenting with neck and right shoulder pain that began about three weeks ago, following the lifting of a mattress. The pain originated as a stiff posterior neck and spread to involve the anterior right neck and right shoulder, impacting her ability to lift her arm. reports pain exacerbates with movement and is relieved by rest. She has not tried any medications. She denies any fever, chills, fall or recent trauma, and there are no accompanying symptoms such as numbness, tingling, or weakness in the arms. She maintains an active lifestyle and healthy diet. [facility] Medical History Impaired glucose tolerance Osteoporosis Impaired glucose tolerance Contracture of joint of both hands Osteoarthritis Genital herpes GERD (gastroesophageal reflux disease) Leukopenia Vitamin D deficiency Surgical History H/O oral surgery Family History Mother Diabetes Father No problems noted. Brother No problems noted. Sister Diabetes Sister No problems noted. Daughter No problems noted. Son No problems noted. Other Substance use disorder Social History Housing: House Alcohol intake: current Alcohol intake frequency: holidays/special occasions only Comment: 2-3 a week 1-2 glass Patient Tobacco Use Status: Never used Tobacco Years Smoked: MJ e-Cigarette/Vaping Use: Never Used Second Hand Smoke Exposure: No Substance Use Type: Marijuana service: No Current occupational status: retired Cognitive needs: No Hearing needs: No Vision needs: Yes (Glasses) Questionnaire PHQ-9 Over the last 2 weeks, how often have you been bothered by any of the following problems? 1. Little interest or pleasure in doing things: not at all 2. Feeling down, depressed, or hopeless: not at all 3. Trouble falling or staying asleep, or sleeping too much: not at all 4. Feeling tired or having little energy: not at all 5. Poor appetite or overeating: not at all 6. Feeling bad about yourself - or that you are a failure or have let yourself or your family down: not at all 7. Trouble concentrating on things, such as reading the newspaper or watching television: not at all 8. Moving or speaking so slowly that other people could have noticed. Or the opposite - being so fidgety or restless that you have been moving around a lot more than usual: not at all 9. Thoughts that you would be better off or of hurting yourself in some way: not at all Total score: 0 Depression Screening Interpretation: Negative Depression Screening Done: Yes Source: Developed by Drs. Aubrey Jaramillo, Tita Hale, Joseluis Nunez and colleagues, with an educational charla from [employer]. Thrive Questionnaire Date Thrive assessed: 01/04/25 I am a: Patient What is your living situation today?: I have a place to live, but I am worried about losing it in the future Within the past 12 months, did the food you bought not last and you didn't have the money to get more?: Never true Within the past 12 months, did you worry whether your food would run out before you got money to buy more?: Never true Do you have trouble paying for medicines?: No Do you have trouble getting transportation to medical appointments?: No Do you have trouble paying your heating and electricity bill?: I choose not to answer this question Do you have trouble taking care of your child, family member or friend?: No Do you have trouble with day-to-day activities such as bathing, preparing meals, shopping, managing finances, etc.?: No Are you currently unemployed and looking for a job?: I choose not to answer this question Are you interested in more education?: Yes Please select the resources that you would like help with: None Currently or been in a relationship where the following occur: Controlled Emotionally THRIVE Score: 2 AUDIT C Alcohol Use Questionnaire (AUDIT-C) 1. How often do you have a drink containing alcohol?: 2-3 times a week 2. How many drinks containing alcohol do you have on a typical day when you are drinking?: 1 or 2 3. How often do you have six or more drinks on one occasion?: Never Total Score: 3 TORIE-7 AMB Questionnaire TORIE-7 Date TORIE - 7 assessed: 01/04/25 Feeling nervous, anxious, or on edge: 1 = Several days Not being able to stop or control worryin = Several days Worrying too much about different things: 1 = Several days Trouble relaxin = Several days Being so restless that it is hard to sit still: 2 = More than half the days Becoming easily annoyed or irritable: 1 = Several days Feeling afraid as if something awful might happen: 0 = Not at all Total TORIE-7 score (0-4 normal; 5-9 mild; 10-14 moderate; 15-21 severe): 7 Source: Developed by Drs. Aubrey Jaramillo, Ttia Hale, Joseluis Nunez and colleagues, with an educational charla from [employer]. Physical exam (Primary Care) Vital Signs: Last Vital Signs Temp 97.5 F 06/08/25 15:05 Pulse 77 06/08/25 15:05 BP 108/60 06/08/25 15:05 Pulse Ox 97 06/08/25 15:05 Oxygen Delivery Method Room Air 06/08/25 15:05 General: Well-appearing, alert, oriented ?3, in no acute distress. MSK: Neck-range of motion intact. Tenderness to palpation of right paraspinal muscles in posterior neck. Shoulders- intact passive and active range of motion in left shoulder. Range of motion limited in right shoulder due to pain. Positive empty can test. Neurological exam: Intact strength and sensation in bilateral shoulders and upper extremities BMI result Body Mass Index 21.4 Tobacco/Smoking Status: Tobacco use Status Tobacco use date assessed 06/08/25 06/08/25 15:09 Patient Tobacco Use Status Never used Tobacco 06/08/25 15:09 e-Cigarette/Vaping Use Never Used 06/08/25 15:09 PHQ-9: PHQ-9 Score PHQ-9: Total score 0 06/08/25 15:09 Depression Screening Interpretation: Negative Thrive Assessment: Date of Thrive Assessment Date Thrive assessed 01/04/25 06/08/25 15:09 Currently or been in a relationship where the following occur: Controlled Emotionally Coding Level of Care Code Est Pt Level 4 (07677) Diagnoses Neck pain M54.2 Right shoulder pain, unspecified chronicity M25.511 Chronicity: unspecified Assessment & Plan Assessment & Plan (1) Neck pain: Code(s): M54.2 - Cervicalgia Category: Medical Plan: Patient presenting with neck pain for 3 weeks that started following the lifting of a mattress, exacerbates with movement and is relieved by rest. She has not tried any medications. She denies any fever, chills, fall or recent trauma, and there are no accompanying symptoms such as numbness, tingling, or weakness in the arms. Symptoms are most likely secondary to muscular strain. Plan - obtain x-ray of the neck -Celebrex 100 mg twice a day for 5 days. Avoid taking other NSAIDs concurrently. Take medication after food. - may use Tylenol as needed -use heating pads on the affected area for twice a day for 10 minutes each -avoid heavy lifting and strenuous exercises -physical therapy referral provided (2) Shoulder pain, right: Code(s): M25.511 - Pain in right shoulder Qualifiers: Chronicity: unspecified Qualified Code(s): M25.511 - Pain in right shoulder Plan: Patient presenting with right shoulder pain for 3 weeks, initially limiting her ability to lift up her arm, now slightly better. Pain aggravated by movement and better with rest. It could be musculoskeletal in nature after lifting a heavy mattress verses rotator cuff etiology, supraspinatus impingement syndrome. Plan -obtain x-ray of the right shoulder -rest of plan as above Orders: Orders XR cervical spine 2V Today M54.2 - Cervicalgia XR shoulder RT min 2V Today M25.511 - Pain in right shoulder PT Evaluation and Treatment Today M54.2 - Cervicalgia Medications: New celecoxib 100 mg PO BID 10 caps 0RF neck pain
== END 2025-06-08 15:48 | disposition home or self-care (01) ==
LOC: HO.HMCH 14:55
PROVIDERS: PCP Internal Medicine; Visit Provider Student in an Organized Health Care Education/Training Program
DX: M54.2 Cervicalgia (principal); M25.511 Pain in right shoulder

== ENCOUNTER → 2025-06-08 15:57 | Outpatient (BNV) | payer MEDICARE, SELFPAY | PROVIDERS: PCP Internal Medicine; Visit Provider Radiology Diagnostic Radiology | DX: M50.321 Other cervical disc degeneration at C4-C5 level (principal); M50.323 Other cervical disc degeneration at C6-C7 level; S43.121A Dislocation of right acromioclavicular joint, 100%-200% displacement, initial encounter | CPT/HCPCS: 72040; 73030 ==

== ENCOUNTER 2025-07-20 13:07 | Outpatient (REF) | payer MEDICARE, SELFPAY ==
--- NOTE | ~2025-07-20 | MM_ITS ---
EXAMINATION: DXA BONE DENSITY AXIAL HISTORY: M81.0 - Age-related osteoporosis without current pathological fracture TECHNIQUE: [employer] Dual energy absorptiometry (DEXA) of the lumbar spine, total left hip, and femoral neck was performed. COMPARISON: Comparison is made with the prior examination dated 02/05/2022. FINDINGS: The bone mineral density of the lumbar spine is 0.830 g/cm2, corresponding to a T-score of -2.8, and a Z-score of -0.6. This is indicative of osteoporosis. This represents a BMD change of -6.7% compared to the prior exam. This is statistically significant. The bone mineral density of the left total hip is 0.738 g/cm2, corresponding to a T-score of -2.1, and a Z-score of 0.0. This is indicative of osteopenia. This represents a BMD change of -1.6% compared to the prior exam. This is not statistically significant. The bone mineral density of the left femoral neck is 0.731 g/cm2, corresponding to a T-score of -2.2, and a Z-score of 0.1. This is indicative of osteopenia. This represents a BMD change of 0.3% compared to the prior exam. FRACTURE RISK: The FRAX index suggests a ten year probability of major osteoporotic fracture of 14.5%, and of hip fracture 4.6%. MM/XR DEXA axial skeleton IMPRESSION: Based on bone mineral density, and according to World Health Organization (WHO) criteria, the diagnosis is consistent with osteoporosis. Statistically, 68% of repeat scans fall within 1 SD (+/- 0.010 g/cm2 for AP spine L1-L4) and 1 SD (+/- 0.012 g/cm2 for femur total) FRAX is a trademark of the [employer] Met[employer] Disease, a World Health Organization (WHO) Collaborating Center. Electronically signed by: Aubrey Desai MD 07/20/2025 02:10 PM [facility]
== END 2025-07-20 13:08 ==
LOC: HO.MAMMO 13:07
PROVIDERS: PCP Student in an Organized Health Care Education/Training Program; Visit Provider Internal Medicine
DX: Z12.31 Encounter for screening mammogram for malignant neoplasm of breast (principal); M81.0 Age-related osteoporosis without current pathological fracture; M85.89 Other specified disorders of bone density and structure, multiple sites
CPT/HCPCS: 77063; 77067; 77080

== ENCOUNTER → 2025-07-20 13:30 | Outpatient (BNV) | payer MEDICARE, SELFPAY | PROVIDERS: PCP Student in an Organized Health Care Education/Training Program; Visit Provider Radiology Diagnostic Radiology | DX: E28.39 Other primary ovarian failure (principal) | CPT/HCPCS: 77080 ==